=== PATIENT | female | born 1955 | race Caucasian/White ===

== ENCOUNTER 2018-04-01 20:03 | Inpatient (IN) | payer MEDICARE, OTHER, SELFPAY ==
[~2018-04-01 20:03] MED LIST: ISOVUE-370 76%-LOCM 1 ML ONE
[2018-04-01 21:09] LABS: ALT (SGPT) 28 U/L (8-55); AST (SGOT) 80 U/L (5-34); Albumin 2.8 g/dL (3.4-4.8); Alkaline Phosphatase 277 U/L (40-150); Anion Gap 18 mmol/L (10-20); BUN (Urea Nitrogen) 13 mg/dL (9.8-20.1); Bilirubin, Total 1.5 mg/dL (0.2-1.2); Calc. Creatinine Clearance 0 mL/min (70-130); Calcium 10.1 mg/dL (7.8-10.44); Carbon Dioxide 23 mmol/L (23-31); Chloride 94 mmol/L (98-107); Estimated GFR-MDRD 83; Globulin 3.5 g/dL (2.4-3.5); Glucose 121 mg/dL (80-115); Lipase 16 U/L (8-78); Potassium 4.4 mmol/L (3.5-5.1); Protein, Total 6.3 g/dL (6.0-8.3); Sodium 131 mmol/L (136-145)
[2018-04-01 21:12] LABS: Band 1 % (5-11); Hemoglobin 10.4 g/dL (12.0-16.0); Lymphocytes 9 % (21-51); MDiff Complete? YES; Mean Corpuscular HGB CONC 32.2 g/dL (32.0-36.0); Mean Corpuscular Hemoglobin 26.3 pg (27.0-31.0); Mean Corpuscular Volume 81.6 fL (78.0-98.0); Mean Platelet Volume 7.8 fL (7.4-10.4); Monocytes 3 % (0-10); Neutrophil 87 % (42-75); PLT Morphology Comment Appears Adequate; Platelet Count 259 thou/uL (130-400); RBC Distribution Width 15.2 % (11.5-14.5); Red Blood Cell (RBC) Count 3.97 mill/uL (4.20-5.40); White Blood Cell (WBC) Count 31.7 thou/uL (4.8-10.8)
[2018-04-01] MEDS ORDERED: MEROPENEM 1 GM/50 ML 1 GM in Premix Bag 1 BAG IVPB SCH (21:30)
--- NOTE | 2018-04-01 22:23 | CT ---
CT ABDOMEN AND PELVIS WITH IV CONTRAST 04/01/18 HISTORY: Nausea, vomiting and diarrhea. COMPARISON: 04/24/14. FINDINGS: There is volume loss at the right lung base with elevation of the right hemidiaphragm. There is also mild atelectasis at the left lung base. There are two pulmonary nodules seen at the left lung base. O ne measuring approximately 7 mm and the second measuring approximately 5 mm which were not present on the study of 2013. The liver is enlarged in craniocaudal dimensions measuring 24 cm. Multiple low density lesions are se en throughout each lobe of the liver with largest low density area measuring 13.4 cm x 7 cm involving the right hepatic lobe. The findings are worrisome for metastatic disease. The spleen, pancreas, bilateral adrenal glands, and kidneys demonstrate a normal CT appearance. The urinary bladder is decompressed. The uterus has a grossly normal CT appearance with punctate calc ifications seen in the uterus. Dense vascular calcifications are seen in the abdominal aorta and invo lving the iliac arteries. There is a small amount of free fluid adjacent to the lower portion of the right hepatic lobe and in the right paracolic gutter. There is also free fluid identified in the pelvis. The portal veins are patent. Degenerative changes are seen in the spine with vertebroplasty changes involving a severe wedge shape d compression fracture of the T12 vertebral body. There is also severe wedge shaped compression fract ure of the T11 vertebral body. These findings were seen on CT lumbar spine 06/20/14. No lytic or sclerotic osseous lesions are appreciated. There is a small fat containing umbilical hernia. IMPRESSION: 1. Hepatomegaly which is an interval change from the study in 2013, and in addition, there are m ultiple hypodense lesions seen throughout each lobe of the liver with largest hypodense lesion in the right hepatic lobe. Findings are concerning for metastatic disease. 2. Pulmonary nodules left lung base also concerning for metastatic disease. 3. Small amount of intraperitoneal free fluid. 4. Above findings discussed with Dr. Ramirez in the Emergency Department on 04/01/18 at 2152 hour s. POS: [facility]
--- NOTE | 2018-04-01 22:32 | PDOC.FPRHP ---
- History of Present Illness Chief Complaint: weakness, N/V/D History of Present Illness: 62 yo F with presents with nausea, vomiting, diarrhea and progressive weakness for the past 3 weeks. She also endorses abdominal pain that is diffuse, feels crampy and radiates up her right side. [facility] just recommended increased po intake of food and fluids. Her symptoms have have not improved. The weakness she describes as general, not limited to any specific part of her body. The diarrhea is watery, and she has about an episode a day. Denies blood in stool, recent travel or sick contacts. She has had decreased appetite due to nausea, and no unintentional weight loss. Denies fevers, chills. Has experienced recent lower leg weakness in which it is now difficult for her to walk. She normally can ambulate well using a cane. Her PCP discontinued her atorvastatin last week but her leg weakness has not improved. - Allergies/Adverse Reactions Allergies Allergy/AdvReac Type Severity Reaction Status Date / Time simvastatin [From Zocor] Allergy Hives Verified 04/02/18 01:23 Sulfa (Sulfonamide Allergy Verified 03/22/14 15:14 Antibiotics) - Home Medications Medication Instructions Recorded Confirmed Type Alendronate Sodium 70 mg PO Q7D 03/22/14 04/02/18 History Calcium Carbonate/Vitamin D3 1 tablet PO BID 03/22/14 04/02/18 History [Calcium 500 + Vit D 200 Caplet] Carboxymethyl/Glycerin/Poly80 1 - 2 drop EA EYE ASDIR PRN 03/22/14 04/02/18 History [Refresh Optive Advanced Drops] HYDROcodone Bit/APAP 10/325 [Makoti] 1 tab PO Q4HR PRN 03/22/14 04/02/18 History Levothyroxine Sodium 125 mcg PO DAILY 03/22/14 04/02/18 History Ranitidine HCl 150 mg PO BID 03/22/14 04/02/18 History Verapamil HCl [Verapamil ER] 240 mg PO BID 03/22/14 04/02/18 History buPROPion HCl [buPROPion HCl SR] 300 mg PO DAILY 03/22/14 04/02/18 History risperiDONE 0.5 mg PO HS 03/22/14 04/02/18 History PARoxetine HCl [Paxil] 40 mg PO DAILY 03/27/14 04/02/18 History Aspirin [Aspirin EC] 81 mg PO DAILY 04/02/18 04/02/18 History Ibuprofen [Motrin] 600 mg PO TID PRN 04/02/18 04/02/18 History Lidocaine 5% Patch [Lidoderm 5% 1 patch TD DAILY PRN 04/02/18 04/02/18 History Patch] Lisinopril/Hydrochlorothiazide 1 tablet PO DAILY 04/02/18 04/02/18 History [Lisinopril-Hctz 10-12.5 mg Tab] Methocarbamol 500 mg PO TID 04/02/18 04/02/18 History Methyl Salicylate/Menthol [Muscle 1 applic TOP TID PRN 04/02/18 04/02/18 History Rub Cream] traZODone HCl [Desyrel] 100 mg PO HS 04/02/18 04/02/18 History - History PMHx: HLD, HTN, Depression, GERD, spinal injury PSHx: appendetomy, right ovarian cystectomy FHx:[place] (mom), HTN Social: denies tob/etoh/drugs - Review of Systems General: denies: fever/chills, weight/appetite/sleep changes, night sweats Eyes: denies: eye pain, vision changes ENT: denies: nasal congestion, rhinorrhea Respiratory: denies: cough, shortness of breath, exercise intolerance Cardiovascular: denies: chest pain, palpitation, edema Gastrointestinal: reports: nausea, diarrhea, abdominal pain. denies: GI bleeding Genitourinary: denies: incontinence, dysuria Skin: denies: rashes, lesions, jaundice Musculoskeletal: denies: pain, tenderness, stiffness, arthritis/arthralgias Neurological: denies: numbness, weakness - Vital signs BP: 139/81 HR: 100 RR: 20 Tmax: 98.8 Pox: 94% on RA Wt: 88.2 - Physical Exam Constitutional: awake, alert and oriented, well developed HEENT: normocephalic and atraumatic, PERRLA, EOMI, no scleral icterus, grossly normal vision, grossly normal hearing Neck: supple, no thyromegaly, no bruits Chest: no-tender to palpation, no lesions Heart: normal S1/S2, no murmurs/rubs/gallops -Heart: tachycardic Lungs: CTAB, no respiratory distress, good air movement, no wheezing Abdomen: soft, bowel sounds present, no masses/distention -Abdomen: diffuse tender to palpation with more tenderness in RUQ. no rebound tenderness, no guarding Musculoskeletal: normal structure, ROM grossly normal Neurological: no focal deficit, CN II-XII intact, normal sensation Skin: no rash/lesions, good turgor, capillary refill <2 seconds Heme/Lymphatic: no unusual bruising or bleeding, no purpura, no petechia Psychiatric: normal mood and affect, other (tearful mood) FMR H&P: Results - Labs Result Diagrams: 04/02/18 02:11 04/02/18 02:11 Lab results: WBC 31.7 thou/uL (4.8-10.8) H 04/01/18 20:40 Hgb 10.4 g/dL (12.0-16.0) L 04/01/18 20:40 Hct 32.4 % (36.0-47.0) L 04/01/18 20:40 MCV 81.6 fL (78.0-98.0) 04/01/18 20:40 Plt Count 259 thou/uL (130-400) 04/01/18 20:40 Band Neuts % (Manual) 1 % (5-11) L 04/01/18 20:40 Sodium 131 mmol/L (136-145) L 04/01/18 20:40 Potassium 4.4 mmol/L (3.5-5.1) 04/01/18 20:40 Chloride 94 mmol/L (98-107) L 04/01/18 20:40 Carbon Dioxide 23 mmol/L (23-31) 04/01/18 20:40 BUN 13 mg/dL (9.8-20.1) 04/01/18 20:40 Creatinine 0.71 mg/dL (0.6-1.1) 04/01/18 20:40 Glucose 121 mg/dL (80-115) H 04/01/18 20:40 Calcium 10.1 mg/dL (7.8-10.44) 04/01/18 20:40 Total Bilirubin 1.5 mg/dL (0.2-1.2) H 04/01/18 20:40 AST 80 U/L (5-34) H 04/01/18 20:40 ALT 28 U/L (8-55) 04/01/18 20:40 Alkaline Phosphatase 277 U/L (40-150) H 04/01/18 20:40 Serum Total Protein 6.3 g/dL (6.0-8.3) 04/01/18 20:40 Albumin 2.8 g/dL (3.4-4.8) L 04/01/18 20:40 Lipase 16 U/L (8-78) 04/01/18 20:40 - Radiology Interpretation CT scan - abdomen Status: image reviewed by me, pending (hypodense lesions in R liver lobe 2 nodules in left pulmonary lobe) FMR H&P: A/P - Problem List (1) Sepsis Current Visit: Yes Status: Acute Code(s): A41.9 - SEPSIS, UNSPECIFIED ORGANISM (2) Metastatic disease Current Visit: Yes Status: Acute Code(s): C79.9 - SECONDARY MALIGNANT NEOPLASM OF UNSPECIFIED SITE (3) Elevated LFTs Current Visit: Yes Status: Acute Code(s): R94.5 - ABNORMAL RESULTS OF LIVER FUNCTION STUDIES (4) Normocytic anemia Current Visit: Yes Status: Chronic Code(s): D64.9 - ANEMIA, UNSPECIFIED (5) Hypertension Current Visit: Yes Status: Chronic Code(s): I10 - ESSENTIAL (PRIMARY) HYPERTENSION (6) Hypothyroidism Current Visit: Yes Status: Chronic Code(s): E03.9 - HYPOTHYROIDISM, UNSPECIFIED - Plan 62 yo F with sepsis 2/2 gi etiology. Sepsis syndrome -ddx: malignacy vs. bacteremia vs. viral GE vs.colitis -WBC 31, neutrophilic predominacne -CTA: possible mets lesions to liver and lungs -continue fluid resuscitation -Meropenem x1 in ED -Will start on vanc/zosyn -Pending blood cx, UA, UCx -will order stool culture, stool studies ( lactoferrin), FOBT, O&P Elevated ALT/ALP 2/2 malignancy vs. infection vs. NAFLD vs. ETOH abuse -will order lipid panel -check RPR, HIV/ HepB/HepC -will check AMA to assess for Primary Biliary Cirrhosi -Continue trending LFTs Normocytic anemia -hx of chronic anemia, not currently on home meds -will order iron studies Hypovolemia -tachycardia, clinically dehydrated -bolus x1 in ED, will bolus x1 and start on mIVF Hyponatremia -unknown etiology, could be from malignancy vs. 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 Pt notes she has been dealing with NVD, decreased oral intake, and weakness for the last 3 weeks. She has anywhere from 1-10 episodes of nonbloody loose watery diarrhea daily. She also endorses a "few" episodes of nonbloody vomiting during the same time period. Pt denies fevers/chills, night sweats, weight loss, POTTS, CP , palpitations, rash, sick contacts, or recent travel. She states she had a colonoscopy in the last 10 years that was normal. - Pertinent findings Vitals: BP 156/85, HR 120, R 18, O2 95% on RA, temp 98.5 oral, wt 90.72 kg Gen: obese in NAD CV:tachycardic, no MMR Resp: good effort, no distress, CTAB Abd: BS+, TTP with gentle stethoscope pressure all quadrants most profound RUQ, neg Rice's, no guarding/rebound Neuro: A&Ox3, no focal deficits - Plan Date/Time: 04/01/182231 I, Luiz Crawley MD PGY3, have evaluated this patient and agree with findings/ plan as outlined by internet sales consultant resident. Pertinent changes/additions are listed here. 1. Sepsis 2/2 likely GI pathology (ddx includes gastroenteritis, colitis, urinary source or bacteremia) -Pt presents with tachycardic, leukocytosis, and lactic acidosis suggestive of sepsis. -Workup and intervention incomplete by ERMD at time of admission. Will continue fluid resuscitation as pt has only received 1L NS bolus and adequate resuscitation (30 cc/kg) calls for 2.7L. Continue with LR 1L bolus at this time. Will also obtain procalcitonin. Trend lactic acid with IVF resuscitation. -With complaints of diarrhea, obtain stool studies including lactoferrin, culture, Shiga, campylobacter, c diff, O&P, and FOBT. -Pt received 1 gm of Meropenem in ED. No indication to continue meropenem at this time. Will transition pt to Vancomycin for G+ coverage and Zosyn for G-/GI coverage. -UA, blood and urine cultures drawn and pending. -CT abdomen does not comment on bowel but discussed with radiologist over the phone who stated small and large bowel appeared normal, no evidence of colitis. 2. Possible metastatic disease with evidence of liver and lung metastases -Unclear source at this time. Will obtain CEA, CA-125, and serum electrophoresis. -With elevation of AST, bilirubin, and alkaline phosphatase, will obtain dedicated RUQ US. Elevation likely secondary to metastatic disease. -Obtain HIV, RPR, hepatitis panel. -Consider consulting oncology in AM. 3. Elevated LFTs likely secondary to metastatic disease -Work up per above. Continue to trend. -AMA as possibly secondary to PBC. 4. Normocytic anemia -Iron studies, B12, folate, and FOBT. -Continue to monitor. 5. Mild hyponatermia -Continue to trend. Likely secondary to volume depletion. 6. HTN -Continue home medications. 7. Hypothyroidism -Check TSH and continue home medication. PPx: Lovenox for VTE prophylaxis, Protonix for GI prophylaxis. CODE STATUS: DNR, confirmed with patient at bedside. Admit to inpatient telemetry for anticipated length of stay greater than two midnights, pending clinical course. Attending Addendum - Attending Addendum Date/Time: 04/02/18 1100 I personally evaluated the patient and discussed the management with Dr. Nikolas Barney/ [place]. I agree with the History, Examination, Assessment and Plan documented above with any addition or exceptions noted below. Patient here with several weeks of increasing abdominal complaints despite outpatient evaluation. Complains of weakness, abdominal pain, diarrhea. Increased nausea and vomiting as well. On lab and imaging review, she meets Sepsis criteria with concern for GI source, and findings consistent with possible metastatic disease with unknown primary source. She will be admitted for further workup and evaluation. Broad spectrum abx and IVF. GI consult to further evaluate possible infection versus malignancy. Abdominal U/S to further characterize her liver lesions.
[2018-04-01] MEDS ORDERED: Lactated Ringer's 1,000 ML IV SCH ×2 (23:45)
[2018-04-02] MEDS ORDERED: Sodium Chloride 0.9% 1,000 ML IV SCH (01:00)
[2018-04-02] MEDS ORDERED: Enoxaparin Sodium 30 MG/0.3 ML SYRINGE SC SCH (01:00)
[2018-04-02] MEDS: Sodium Chloride 0.9% 1,000 ML IV SCH ×4 (01:48→21:25)
[2018-04-02 02:54] LABS: Lactic Acid 2.5 mmol/L (0.5-2.2)
[2018-04-02 02:56] LABS: Band 5 % (5-11); Hemoglobin 9.5 g/dL (12.0-16.0); Lymphocytes 3 % (21-51); MDiff Complete? YES; Mean Corpuscular HGB CONC 32.6 g/dL (32.0-36.0); Mean Corpuscular Hemoglobin 26.4 pg (27.0-31.0); Mean Corpuscular Volume 80.7 fL (78.0-98.0); Mean Platelet Volume 8.1 fL (7.4-10.4); Monocytes 6 % (0-10); Neutrophil 86 % (42-75); PLT Morphology Comment Appears Adequate; Platelet Count 234 thou/uL (130-400); RBC Distribution Width 15.1 % (11.5-14.5); Red Blood Cell (RBC) Count 3.59 mill/uL (4.20-5.40)
[2018-04-02] MEDS ORDERED: Ketorolac Tromethamine 30 MG/ML VIAL IVP SCH ×2 (03:00→06:00)
[2018-04-02 03:15] LABS: ALT (SGPT) 26 U/L (8-55); AST (SGOT) 79 U/L (5-34); Albumin 2.5 g/dL (3.4-4.8); Alkaline Phosphatase 242 U/L (40-150); Anion Gap 15 mmol/L (10-20); BUN (Urea Nitrogen) 11 mg/dL (9.8-20.1); Bilirubin, Total 1.4 mg/dL (0.2-1.2); Calc. Creatinine Clearance 120 mL/min (70-130); Calcium 9.4 mg/dL (7.8-10.44); Carbon Dioxide 26 mmol/L (23-31); Chloride 98 mmol/L (98-107); Estimated GFR-MDRD 90; Globulin 3.3 g/dL (2.4-3.5); Glucose 90 mg/dL (80-115); Iron 22 ug/dL (50-170); Iron Binding Capacity, Total 114 mcg/dL (265-497); Protein, Total 5.8 g/dL (6.0-8.3); Sodium 135 mmol/L (136-145)
[2018-04-02 03:17] LABS: Cardiac Risk 6.6 (Less than 4.5)
[2018-04-02 03:31] LABS: Thyroid Stimulating Hormone 5.2695 uIU/mL (0.35-4.94)
[2018-04-02 03:32] LABS: HBSAg Index 0.24 S/CO (0-0.99); Hep B Surf AB Non-Reactive (NonReactive); Hep B Surf Ag Non-Reactive S/CO (NonReactive); Hep C IgG Ab Non-Reactive (NonReactive)
[2018-04-02 03:33] LABS: HIV (1/2) Antibody/Antigen Non-Reactive (NonReactive); HIV 1/2 INDEX 0.06 S/CO (<1.00)
--- NOTE | 2018-04-02 05:51 | PDOC.FM ---
- Subjective Subjective: 62 yo F with sepsis 2/2 GI source and probable metastatic disease. She is feeling tired this morning. States she has lost 25 lbs (intentional at first) since September, food doesn't taste the same or smell the same. No colonoscopy in the past. No fam hx of GI/ovarian cancer. She has done FOBT in the past ( approx 1 yr ago per pt) that were normal. Pt states her nausea is improved and she is hungry this morning. Belly pain improved. - Objective Vital Signs & Weight: Vital Signs (12 hours) Temp Pulse Resp BP Pulse Ox 04/02/18 04:00 98.1 F 92 20 161/82 H 92 L 04/02/18 00:15 98.8 F 100 20 139/81 94 L Weight Weight 88.224 kg Result Diagrams: 04/02/18 02:11 04/02/18 02:11 <Kae Prater - Last Filed: 04/02/18 07:52> - Objective Vital Signs & Weight: Vital Signs (12 hours) Temp Pulse Resp BP BP Pulse Ox 04/02/18 08:46 86 128/73 04/02/18 08:00 98.3 F 86 18 128/73 95 04/02/18 04:00 98.1 F 92 20 161/82 H 92 L 04/02/18 00:15 98.8 F 100 20 139/81 94 L Weight Weight 88.224 kg I&O: 04/01/18 04/02/18 04/03/18 06:59 06:59 06:59 Intake Total 1078 Output Total 400 Balance 678 Result Diagrams: 04/02/18 02:11 04/02/18 02:11 <Vincent [address] - Last Filed: 04/02/18 10:44> Phys Exam - Physical Examination Constitutional: NAD HEENT: PERRLA, moist MMs Neck: no nodes, no JVD Respiratory: no wheezing, no rales Cardiovascular: RRR, no significant murmur Gastrointestinal: soft +TTP on deep palpation in RLQ and RUQ Musculoskeletal: no edema, pulses present Neurological: moves all 4 limbs Lymphatic: no nodes Skin: no rash, normal turgor <Kae Prater - Last Filed: 04/02/18 07:52> Dx/Plan (1) Hyponatremia Code(s): E87.1 - HYPO-OSMOLALITY AND HYPONATREMIA Status: Resolved (2) Hypovolemia associated with vomiting Code(s): E86.1 - HYPOVOLEMIA Status: Acute (3) Depression Code(s): F32.9 - MAJOR DEPRESSIVE DISORDER, SINGLE EPISODE, UNSPECIFIED Status : Chronic (4) Osteoporosis Code(s): M81.0 - AGE-RELATED OSTEOPOROSIS W/O CURRENT PATHOLOGICAL FRACTURE Status: Chronic (5) Elevated LFTs Code(s): R94.5 - ABNORMAL RESULTS OF LIVER FUNCTION STUDIES Status: Acute (6) Hypertension Code(s): I10 - ESSENTIAL (PRIMARY) HYPERTENSION Status: Chronic (7) Hypothyroidism Code(s): E03.9 - HYPOTHYROIDISM, UNSPECIFIED Status: Chronic (8) Metastatic disease Code(s): C79.9 - SECONDARY MALIGNANT NEOPLASM OF UNSPECIFIED SITE Status: Acute (9) Normocytic anemia Code(s): D64.9 - ANEMIA, UNSPECIFIED Status: Chronic (10) Sepsis Code(s): A41.9 - SEPSIS, UNSPECIFIED ORGANISM Status: Acute - Plan Plan: 1. Sepsis 2/2 likely GI pathology (ddx includes gastroenteritis, colitis, urinary source or bacteremia) -Presented with tachycardia, leukocytosis, and lactic acidosis suggestive of sepsis. -Continue fluid rescuscitation (bolus LR x1, NSx1), MIVF @ 125 ml/hr -Procalcitonin 5.73 -LA down trending, 5.1-> 2.5 -For diarrhea, obstained stool studies including lactoferrin, culture, Shiga, campylobacter, c diff, O&P, and FOBT. -Pt received 1 gm of Meropenem in ED. No indication to continue meropenem at this time. Transitioned to Vancomycin 04/01/18 for G+ coverage and Zosyn for G-/ GI coverage. -UA pending -blood and urine cultures drawn and pending -CT abdomen does not comment on bowel but resident discussed with radiologist over the phone who stated small and large bowel appeared normal, no evidence of colitis. 2. Possible metastatic disease with evidence of liver and lung metastases -Unclear source at this time. Ordered CEA, CA-125, and serum electrophoresis. -CEA very high at 1191 -With elevation of AST, bilirubin, and alkaline phosphatase, will obtain dedicated RUQ US. Elevation likely secondary to metastatic disease. -HIV, RPR, hepatitis panel - all negative. Hep B immune -Consult oncology, recommendations appreciated 3. Elevated LFTs likely secondary to metastatic disease -Work up per above. Continue to trend. -AMA is possibly secondary to PBC. -Lipid panel: wnl 4. Normocytic anemia -Iron studies wnl - B12, folate, and FOBT ordered -Folate low, will replace with banana bag -Continue to monitor. 5. Mild hyponatremia, resolved -Likely secondary to volume depletion, resolved with fluids 6. HTN -Continue home medications. 7. Hypothyroidism - TSH slightly high at 5.3 -Free T4 wnl at .95 - Free T3 pending 8. Hypovolemia -Clinically dehydrated, tachycardic on presentation - bolus x2, MIVF NS @125 9. Depression -Continue home medications 10. Osteoporosis -Continue home medications PPx: Lovenox for VTE prophylaxis, Protonix for GI prophylaxis. CODE STATUS: Full code Admitted to Inpatient telemetry Rod Prater PGY1 <Kae Prater - Last Filed: 04/02/18 07:52> Attending Addendum - Attending Addendum Date/Time: 04/02/18 1042 I personally evaluated the patient and discussed the management with Dr. Prater. I agree with the History, Examination, Assessment and Plan documented above with any addition or exceptions noted below. Patient feeling improved this morning. She was admitted for concern for sepsis with possible GI infection of unknown etiology as well as lab and imaging findings concerning for malignancy. We will continue on broad spectrum abx and fluids. Cultures have been obtained. RUQ U/S consistent with biliary sludge and stones but unlikely to be the major cause of her presentation. [facility] and so we will defer further studies or consults until that decision is made. Needs GI consult and possible future Oncology consult. <Vincent Way - Last Filed: 04/02/18 10:44>
[2018-04-02 06:03] LABS: Free T4 (Free Thyroxine) 0.95 ng/dL (0.70-1.48); Syphilis Antibody Nonreactive (Nonreactive); Syphilis Antibody Index 0.04 S/CO (<1.00 Non-Reactive)
[2018-04-02 06:20] LABS: Vitamin B12 Greater than 2000 pg/mL (211-911)
[2018-04-02] MEDS: Levothyroxine Sodium 125 MCG TAB PO SCH (06:22)
[2018-04-02] MEDS: Ibuprofen 600 MG TAB PO PRN ×2 (06:22→17:06)
[2018-04-02] MEDS: Piperacillin/Tazobactam 3.375 GM in Sodium Chloride 0.9% 100 ML IVPB SCH ×3 (06:23→17:05)
[2018-04-02 06:48] LABS: Ferritin 2594.93 ng/mL (10-291)
[2018-04-02 06:51] LABS: Bilirubin Negative (Negative); Blood, Urine Negative (Negative); Clarity CLEAR (Clear); Glucose, Urine (Dipstick) Negative (Negative); Leukocyte Small (Negative); Nitrite Negative (Negative); Protein, Urine (Dipstick) Negative (Neg-Trace); Specific Gravity, Urine 1.021 (1.002-1.036); Urobilinogen 0.2 mg/dL (0.2-1.0)
[2018-04-02 06:53] LABS: Pathc Cast-AUWi Flag 0.43 (0-2.49)
[2018-04-02 07:19] LABS: Bacteria/HPF 1+ HPF (None Seen); Hyaline Casts/LPF NONE SEEN LPF (0-3 Hyaline); RBC/HPF 0-3 HPF (0-3); Squamous Epithelial 0-3 HPF (0-3); WBC/HPF 0-3 HPF (0-3)
[2018-04-02] MEDS: Bupropion 150 MG XL TAB PO SCH (08:44)
[2018-04-02] MEDS: PARoxetine 20 MG TAB PO SCH (08:44)
[2018-04-02] MEDS: Calcium Carbonate + Vit D 1 TAB PO SCH ×2 (08:46→21:24)
[2018-04-02] MEDS: Lisinopril/Hydrochlorothiazide 10 mg/12.5 mg Tablet PO SCH (08:46)
[2018-04-02] MEDS: Vancomycin HCl 1.5 GM in Sodium Chloride 0.9% 250 ML 300 ML IVPB SCH ×2 (08:55→21:34)
[2018-04-02] MEDS: Aspirin 81 mg Enteric Coated Tablet PO SCH (08:56)
[2018-04-02] MEDS: Ketorolac Tromethamine 30 MG/ML VIAL IVP SCH ×3 (08:57→21:23)
[2018-04-02] MEDS: Pantoprazole 40 MG VIAL IVP SCH (08:58)
[2018-04-02] MEDS ORDERED: Folic Acid 1 MG TAB PO SCH ×2 (09:00→11:00)
[2018-04-02] MEDS ORDERED: Non-Formulary Item 1 EACH (Ranitidine Hcl [Ranitidine Hcl] 150 MG) PO SCH (09:00)
--- NOTE | 2018-04-02 09:02 | ULT ---
GALLBLADDER ULTRASOUND: INDICATION: Elevated liver function tests and right upper quadrant pain. Evidence of liver metastasis on recent CT. FINDINGS: Gallbladder is full of echogenic stones and echogenic sludge. The gallbladder wall is thickened. Th e common duct is within normal range at 5 mm. The liver is very heterogeneous consistent with CT findings. Pancreas is obscured. The right kidney is unremarkable. The technologist describes a positive Rice's sign. IMPRESSION: 1. Gallbladder is filled with echogenic stones, sludge, and thickened wall with positive Rice's si gn. 2. The liver is heterogeneous consistent with metastatic disease as noted on CT. POS: [facility]
[2018-04-03] MEDS: Piperacillin/Tazobactam 3.375 GM in Sodium Chloride 0.9% 100 ML IVPB SCH ×5 (00:07→23:53)
[2018-04-03] MEDS: Sodium Chloride 0.9% 1,000 ML IV SCH ×3 (01:06→19:40)
[2018-04-03] MEDS: Ibuprofen 600 MG TAB PO PRN ×3 (01:06→22:00)
[2018-04-03] MEDS: Ketorolac Tromethamine 30 MG/ML VIAL IVP SCH ×2 (03:17→08:55)
--- NOTE | 2018-04-03 05:13 | PDOC.FM ---
- Subjective Subjective: Ms. Guzman reports she did not sleep well last night due to cold room and restless legs. Otherwise she has no complaints. No nausea vomiting. Reports she is tolerating PO intake well. Is concerned about finances and hopes to be transferred to the [facility] today. - Objective MAR Reviewed: Yes Vital Signs & Weight: Vital Signs (12 hours) Temp Pulse Resp BP Pulse Ox 04/03/18 03:14 98.2 F 84 20 115/61 93 L 04/02/18 23:05 82 20 111/57 L 93 L 04/02/18 21:23 97.8 F 82 20 95 04/02/18 20:16 97.8 F 82 20 123/59 L 95 Weight Weight 91.852 kg I&O: 04/01/18 04/02/18 04/03/18 06:59 06:59 06:59 Intake Total 1078 2280 Output Total 400 1100 Balance 678 1180 Result Diagrams: 04/02/18 02:11 04/03/18 05:28 Phys Exam - Physical Examination Constitutional: NAD Respiratory: no wheezing, no rales, no rhonchi, clear to auscultation bilateral Cardiovascular: RRR, no significant murmur Gastrointestinal: soft, non-tender, no distention, positive bowel sounds Musculoskeletal: no edema, pulses present Neurological: non-focal Psychiatric: normal affect Dx/Plan (1) Elevated LFTs Code(s): R94.5 - ABNORMAL RESULTS OF LIVER FUNCTION STUDIES Status: Acute (2) Hypovolemia associated with vomiting Code(s): E86.1 - HYPOVOLEMIA Status: Acute (3) Metastatic disease Code(s): C79.9 - SECONDARY MALIGNANT NEOPLASM OF UNSPECIFIED SITE Status: Acute (4) Sepsis Code(s): A41.9 - SEPSIS, UNSPECIFIED ORGANISM Status: Acute (5) Depression Code(s): F32.9 - MAJOR DEPRESSIVE DISORDER, SINGLE EPISODE, UNSPECIFIED Status : Chronic (6) Hypertension Code(s): I10 - ESSENTIAL (PRIMARY) HYPERTENSION Status: Chronic (7) Hypothyroidism Code(s): E03.9 - HYPOTHYROIDISM, UNSPECIFIED Status: Chronic (8) Normocytic anemia Code(s): D64.9 - ANEMIA, UNSPECIFIED Status: Chronic (9) Osteoporosis Code(s): M81.0 - AGE-RELATED OSTEOPOROSIS W/O CURRENT PATHOLOGICAL FRACTURE Status: Chronic (10) Hyponatremia Code(s): E87.1 - HYPO-OSMOLALITY AND HYPONATREMIA Status: Resolved - Plan Plan: 1. Sepsis 2/2 likely GI pathology (ddx includes gastroenteritis, colitis, urinary source or bacteremia) -Presented with tachycardia, leukocytosis, and lactic acidosis suggestive of sepsis. -Continue IVF @ 125 ml/hr -Procalcitonin 5.73 -LA down trending, 5.1-> 2.5 -FOBT negative. Stool studies not completed. -Vancomycin 04/01/18 for G+ coverage and Zosyn for G-/GI coverage. -UA neg -blood and urine cultures pending -CT abdomen does not comment on bowel but resident discussed with radiologist over the phone who stated small and large bowel appeared normal, no evidence of colitis. -Needs GI consult pending dispo - refused labs this morning due to concern about cost 2. Possible metastatic disease with evidence of liver and lung metastases -Unclear source at this time. CEA 1195, CA-125 1248 -HIV, RPR, hepatitis panel - all negative. Hep B immune -Consider oncology consult 3. Elevated LFTs likely secondary to metastatic disease -Work up per above. Continue to trend. -Lipid panel: wnl - RUQ US 4. Normocytic anemia -Iron studies wnl -Folate low, given banana bag -Continue to monitor. 5. Mild hyponatremia, resolved -Likely secondary to volume depletion, resolved with fluids 6. HTN -Continue home medications. 7. Hypothyroidism - TSH slightly high at 5.3 -Free T4 wnl at .95, Free T3 low <1 8. Hypovolemia, resolved -Clinically dehydrated, tachycardic on presentation -NS @125 9. Depression -Continue home medications 10. Osteoporosis -Continue home medications PPx: Lovenox for VTE prophylaxis, Protonix for GI prophylaxis. CODE STATUS: Full code Dispo: possible transfer to [facility] today
[2018-04-03] MEDS: Levothyroxine Sodium 125 MCG TAB PO SCH (05:58)
[2018-04-03 06:15] LABS: ALT (SGPT) 11 U/L (8-55); AST (SGOT) 11 U/L (5-34); Albumin 3.1 g/dL (3.4-4.8); Alkaline Phosphatase 80 U/L (40-150); Anion Gap 13 mmol/L (10-20); BUN (Urea Nitrogen) 57 mg/dL (9.8-20.1); Bilirubin, Total 0.5 mg/dL (0.2-1.2); Calc. Creatinine Clearance 35 mL/min (70-130); Calcium 8.9 mg/dL (7.8-10.44); Carbon Dioxide 20 mmol/L (23-31); Chloride 106 mmol/L (98-107); Estimated GFR-MDRD 21; Globulin 3.2 g/dL (2.4-3.5); Glucose 393 mg/dL (80-115); Potassium 4.3 mmol/L (3.5-5.1); Protein, Total 6.3 g/dL (6.0-8.3); Sodium 135 mmol/L (136-145)
[2018-04-03] MEDS: Pantoprazole 40 MG VIAL IVP SCH (08:53)
[2018-04-03] MEDS: Enoxaparin Sodium 40 MG/0.4 ML SYRINGE SC SCH (08:53)
[2018-04-03] MEDS: Calcium Carbonate + Vit D 1 TAB PO SCH ×2 (08:54→20:45)
[2018-04-03] MEDS: Lisinopril/Hydrochlorothiazide 10 mg/12.5 mg Tablet PO SCH (08:54)
[2018-04-03] MEDS: Aspirin 81 mg Enteric Coated Tablet PO SCH (08:55)
[2018-04-03] MEDS: Folic Acid 1 MG TAB PO SCH (08:55)
[2018-04-03] MEDS: PARoxetine 20 MG TAB PO SCH (09:00)
[2018-04-03] MEDS: Bupropion 150 MG XL TAB PO SCH (09:01)
[2018-04-03] MEDS: Vancomycin HCl 1.5 GM in Sodium Chloride 0.9% 250 ML 300 ML IVPB SCH ×2 (09:05→21:02)
[2018-04-03 12:10] LABS: EliA Vaculitis New Method **** NEW METHOD ****; Mitochondrial Ab 0.5 U/mL (<4 Negative)
--- NOTE | 2018-04-03 15:32 | RAD ---
CHEST TWO VIEWS: HISTORY: Sepsis without source. COMPARISON: CT abdomen and pelvis from 04/01/2018. FINDINGS: There is linear atelectasis in both lung bases. There is exaggerated kyphosis of the two compression fractures of the lower thoracic spine. No pneumothorax or effusion. IMPRESSION: Lung hypoinflation with linear atelectasis. POS: [facility]
[2018-04-03 16:33] LABS: ALT (SGPT) 32 U/L (8-55); AST (SGOT) 93 U/L (5-34); Albumin 2.3 g/dL (3.4-4.8); Alkaline Phosphatase 261 U/L (40-150); Anion Gap 15 mmol/L (10-20); BUN (Urea Nitrogen) 10 mg/dL (9.8-20.1); Bilirubin, Total 1.6 mg/dL (0.2-1.2); Calc. Creatinine Clearance 101 mL/min (70-130); Carbon Dioxide 22 mmol/L (23-31); Chloride 106 mmol/L (98-107); Estimated GFR-MDRD 70; Globulin 2.9 g/dL (2.4-3.5); Glucose 107 mg/dL (80-115); Potassium 3.8 mmol/L (3.5-5.1); Protein, Total 5.2 g/dL (6.0-8.3); Sodium 139 mmol/L (136-145)
[2018-04-03 20:54] LABS: Vancomycin, Trough 33.7 ug/mL
[2018-04-03] MEDS ORDERED: Ibuprofen 600 MG TAB PO PRN (21:50)
[2018-04-03] MEDS ORDERED: traZODone HCl 50 MG TAB PO SCH (22:00)
[2018-04-04] MEDS: Levothyroxine Sodium 125 MCG TAB PO SCH (05:29)
[2018-04-04] MEDS: Piperacillin/Tazobactam 3.375 GM in Sodium Chloride 0.9% 100 ML IVPB SCH ×2 (05:29→12:20)
--- NOTE | 2018-04-04 06:22 | PDOC.FM ---
- Subjective Subjective: Ms. Guzman denies any new complaints. Denies nausea, vomiting, diarrhea, fever. Feels constipated. Has had soaking night sweats a couple times/week for past couple months. Denies any appetite or weight changes. Never had a colonoscopy. Never had dark stools in the past. Typically constipated. Previous smoker, quit 6 years ago, 8 pack years. Reports general weakness for past 3 weeks. - Objective MAR Reviewed: Yes Vital Signs & Weight: Vital Signs (12 hours) Temp Pulse Resp BP Pulse Ox 04/04/18 03:44 98.2 F 79 18 112/56 L 95 04/03/18 19:40 98.0 F 86 20 113/59 L 92 L Weight Admit Weight 88.224 kg Weight 91.654 kg I&O: 04/02/18 04/03/18 04/04/18 06:59 06:59 06:59 Intake Total 1078 4293 1120 Output Total 400 1600 400 Balance 678 7463 720 Result Diagrams: 04/04/18 05:35 04/04/18 05:35 Phys Exam - Physical Examination Constitutional: NAD HEENT: moist MMs Respiratory: no wheezing, clear to auscultation bilateral Cardiovascular: RRR, no significant murmur Gastrointestinal: soft, no distention, positive bowel sounds Diffuse TTP, LUQ more than other zones Musculoskeletal: no edema Neurological: non-focal, moves all 4 limbs Psychiatric: normal affect, A&O x 3 Skin: no rash, normal turgor Dx/Plan (1) Elevated LFTs Code(s): R94.5 - ABNORMAL RESULTS OF LIVER FUNCTION STUDIES Status: Acute (2) Hypovolemia associated with vomiting Code(s): E86.1 - HYPOVOLEMIA Status: Acute (3) Metastatic disease Code(s): C79.9 - SECONDARY MALIGNANT NEOPLASM OF UNSPECIFIED SITE Status: Acute (4) Sepsis Code(s): A41.9 - SEPSIS, UNSPECIFIED ORGANISM Status: Acute (5) Depression Code(s): F32.9 - MAJOR DEPRESSIVE DISORDER, SINGLE EPISODE, UNSPECIFIED Status : Chronic (6) Hypertension Code(s): I10 - ESSENTIAL (PRIMARY) HYPERTENSION Status: Chronic (7) Hypothyroidism Code(s): E03.9 - HYPOTHYROIDISM, UNSPECIFIED Status: Chronic (8) Normocytic anemia Code(s): D64.9 - ANEMIA, UNSPECIFIED Status: Chronic (9) Osteoporosis Code(s): M81.0 - AGE-RELATED OSTEOPOROSIS W/O CURRENT PATHOLOGICAL FRACTURE Status: Chronic (10) Hyponatremia Code(s): E87.1 - HYPO-OSMOLALITY AND HYPONATREMIA Status: Resolved - Plan Plan: Sepsis 2/2 likely GI pathology (ddx includes gastroenteritis, colitis, urinary source or bacteremia) -Presented with N/V/D, tachycardia, leukocytosis, and lactic acidosis suggestive of sepsis. -Vitals now stable, IVF discontinued -Procalcitonin 5.73 -LA down trending, 5.1-> 2.5 -FOBT negative. Stool studies not completed d/t formed stools. -Vancomycin 04/01/18 for G+ coverage and Zosyn for G-/GI coverage. Pharmacy to dose vanc, last trough elevated. -UA neg -blood and urine cultures pending -CT abdomen does not comment on bowel but resident discussed with radiologist over the phone who stated small and large bowel appeared normal, no evidence of colitis. -Consulted GI, Case Possible metastatic disease with evidence of liver and lung metastases, unknown source - Founds on CT ab/pelvis. Will continue workup to identify primary source - transvaginal ultrasound pending - will consider CT chest - Unclear source at this time. CEA 1195, CA-125 1248 -HIV, RPR, hepatitis panel - all negative. Hep B immune -Consider oncology consult Cholecystisis possible - RUQ US showed gallbladder filled with echogenic stones, sludge, thickened meléndez, positive Rice's sign. Metastatic lesions on liver. - RUQ still mildly TTP - N/V/D have resolved. Consider general surgery consult. Elevated LFTs likely secondary to metastatic disease -Work up per above. Continue to trend. - Today total bili 1.4, AST 89, ALT 31 Normocytic anemia, stable -Ferritin 2594, iron studies suggest anemia of chronic disease -Folate low, given banana bag -Continue to monitor. Mild hyponatremia, resolved HTN -Continue home medications Chronic Low Back Pain - after breaking back 6 years ago Constipation - added bowel regimen Hypothyroidism - TSH slightly high at 5.3 -Free T4 wnl at .95, Free T3 low <1 Depression -Continue home medications Osteoporosis -Continue home medications Previous Tobacco Use - quit 6 years ago, 8 pack year hx Weakness - consult PT PPx: Lovenox for VTE prophylaxis, Protonix for GI prophylaxis. CODE STATUS: Full code Dispo: pending workup
[2018-04-04 06:35] LABS: ALT (SGPT) 31 U/L (8-55); AST (SGOT) 89 U/L (5-34); Albumin 2.3 g/dL (3.4-4.8); Alkaline Phosphatase 233 U/L (40-150); Anion Gap 16 mmol/L (10-20); BUN (Urea Nitrogen) 9 mg/dL (9.8-20.1); Bilirubin, Total 1.4 mg/dL (0.2-1.2); Calc. Creatinine Clearance 78 mL/min (70-130); Carbon Dioxide 19 mmol/L (23-31); Chloride 107 mmol/L (98-107); Estimated GFR-MDRD 53; Globulin 2.9 g/dL (2.4-3.5); Glucose 86 mg/dL (80-115); Protein, Total 5.2 g/dL (6.0-8.3); Sodium 138 mmol/L (136-145)
[2018-04-04 07:21] LABS: Band 15 % (5-11); Hemoglobin 8.7 g/dL (12.0-16.0); Lymphocytes 6 % (21-51); MDiff Complete? YES; Mean Corpuscular HGB CONC 32.4 g/dL (32.0-36.0); Mean Corpuscular Hemoglobin 26.2 pg (27.0-31.0); Mean Corpuscular Volume 81.1 fL (78.0-98.0); Mean Platelet Volume 8.4 fL (7.4-10.4); Monocytes 6 % (0-10); Neutrophil 73 % (42-75); PLT Morphology Comment Appears Adequate; Platelet Count 239 thou/uL (130-400); Polychromasia SLIGHT = 2-3 cells (100X) (0-2/hpf); RBC Distribution Width 15.5 % (11.5-14.5); Red Blood Cell (RBC) Count 3.31 mill/uL (4.20-5.40)
[2018-04-04] MEDS ORDERED: Iopamidol 370 76% 100 ML VIAL ONE (08:27)
--- NOTE | 2018-04-04 08:35 | ADD-PRG ---
ADDENDUM DATE OF SERVICE: 04/03/2018 This is an addendum to the note of Dr. Lavern Madden. The patient is a 62-year-old female patient, who was initially admitted with nausea, vomiting, diarrh ea, and progressive weakness for the last 3 weeks. Subsequent to this an abdominal pelvic CT was obt ained on 04/01/2018 showing the presence of possible metastatic disease. Specifically, the liver was enlarged measuring 24 cm. There were multiple low-density lesions seen throughout each lobe with la rgest area measuring 13 x 7 cm. It was worrisome for metastatic disease. The spleen, pancreas, adre nal glands and kidneys were normal. Urinary bladder appeared normal. Calcifications seen in the richie sharron. The impression was as stated above, concerning for metastatic disease. Given the fact that she was a dmitted with a white count of 31,700 and possible sepsis. She was initially placed on broad-spectrum antibiotics. She has expressed a desire to be transferred to the [facility] in [place], where her h ospital workup will be covered financially. We are in the process of attempting arrangements at this time.
[2018-04-04] MEDS ORDERED: Vancomycin HCl 1.25 GM in Sodium Chloride 0.9% 250 ML 250 ML IVPB SCH ×2 (09:00→21:00)
[2018-04-04] MEDS: Pantoprazole 40 MG VIAL IVP SCH (09:33)
[2018-04-04] MEDS: PARoxetine 20 MG TAB PO SCH (09:36)
[2018-04-04] MEDS: Ibuprofen 600 MG TAB PO PRN (09:36)
[2018-04-04] MEDS: Senokot 8.6 MG TAB PO SCH ×3 (09:36→20:44)
[2018-04-04] MEDS: Folic Acid 1 MG TAB PO SCH (09:37)
[2018-04-04] MEDS: Calcium Carbonate + Vit D 1 TAB PO SCH ×2 (09:37→20:17)
[2018-04-04] MEDS: Enoxaparin Sodium 40 MG/0.4 ML SYRINGE SC SCH (09:38)
[2018-04-04] MEDS: Aspirin 81 mg Enteric Coated Tablet PO SCH (09:38)
[2018-04-04] MEDS: Lisinopril/Hydrochlorothiazide 10 mg/12.5 mg Tablet PO SCH (09:38)
[2018-04-04] MEDS: Polyethylene Glycol 3350 17 GM Packet PO SCH (09:45)
[2018-04-04] MEDS: Bupropion 150 MG XL TAB PO SCH (10:20)
[2018-04-04 12:19] LABS: Vancomycin, Random 21.5 ug/mL (See Comment)
--- NOTE | 2018-04-04 12:39 | ULT ---
TRANSABDOMINAL PELVIS ULTRASOUND: INDICATIONS: History of metastasis. TECHNIQUE: Irby-scale ultrasound images were obtained of the abdomen via a transabdominal approach. The patient refused transvaginal examination. FINDINGS: The visualized bladder is normal appearing. The uterus and adnexa are not well seen. There is a sma ll amount of free fluid seen within the lower pelvis, adjacent to the bladder. IMPRESSION: 1. Nonvisualization of the uterus and adnexa. The patient refused transvaginal examination, limitin g the ultrasound evaluation. 2. Mild free fluid in the pelvis. POS: [facility]
--- NOTE | 2018-04-04 12:50 | ADD-PRG ---
DATE OF SERVICE: 04/04/2018 This is an addendum to the note of Dr. Laevrn Madden. Ms. Guzman has just returned from her transvaginal ultrasound. We will go ahead and consult GI to s if they would like to do a liver biopsy and possibly a colonoscopy. Her CT of the abdomen showed possible metastatic disease in the lower lung anderson and we will confirm this with a CT of the lungs. Clinically, Ms. Guzman remains stable. We believe her symptoms at presentation were more likely d ue to metastatic disease and not infection. She has been afebrile and her urine culture and blood cu ltures are all no growth. We will therefore discontinue her antibiotics.
[2018-04-04] MEDS ORDERED: GoLYTELY 4,000 ml Bottle PO SCH (13:30)
--- NOTE | 2018-04-04 14:00 | CON ---
DATE OF CONSULTATION: 04/04/2018 REQUESTING PHYSICIAN: Dr. Madden. REASON FOR CONSULTATION: Metastatic disease. HISTORY OF PRESENT ILLNESS: Ms. Maureen Guzman is a very pleasant 62-year-old woman who was adm itted to the hospital a couple of days ago after presenting with worsening symptoms of generalized ab dominal pain, nausea, vomiting, and loose stools over the past 3 weeks. This has come on with progre ssive weakness. She denies any hematochezia or hematemesis with this, but has been developing overal l fatigue and malaise. Upon presentation, she was found to have a leukocytosis with WBC 31.7 as well as elevated lactic acid. She was initially treated with broad spectrum antibiotics. CT of the abdo men and pelvis on admission demonstrated a couple of new pulmonary nodules in the left lung base as w ell as multiple large liver lesions in both lobes measuring up to 13.4 cm concerning for metastatic d isease. The patient denies any family history of gastrointestinal malignancy. She does not think sh e has ever had a colonoscopy before. She does not smoke or drink alcohol. Further lab workup has de monstrated elevated CEA of 1191 and CA-125 of 1248.9. PAST MEDICAL AND SURGICAL HISTORY: Appendectomy, osteoporosis, hyperlipidemia, GERD, hypertension, d epression, spinal injury, right ovarian cystectomy. REVIEW OF SYSTEMS: Full review of systems including constitutional, head, eyes, ears, nose, throat, GI, , cardiovascular, respiratory, musculoskeletal, and neurologic systems is negative except as no dain in the HPI. FAMILY HISTORY: Her mother had myocardial infarction. No known family history of GI malignancy. SOCIAL HISTORY: No smoking, alcohol, or drug use. ALLERGIES: SIMVASTATIN and SULFA. HOME MEDICATIONS: Alendronate, calcium carbonate/vitamin D, [place] p.r.n., levothyroxine, ranitidine, verapamil, bupropion, risperidone, paroxetine, aspirin 81 mg daily, ibuprofen t.i.d. p.r.n., lidocai ne patch, lisinopril/hydrochlorothiazide, methocarbamol, trazodone. PHYSICAL EXAMINATION: VITAL SIGNS: Temperature 97.6, pulse 79, blood pressure 102/66, 93% oxygen saturation on room air. GENERAL: Chronically ill, but nontoxic appearing 62-year-old woman lying in bed comfortably, in no d istress. SKIN: She is a bit pale, no jaundice, no rashes were palpable. EYES: No scleral icterus. Extraocular movements intact. ENT: Mucous membranes moist, no oral lesions. LYMPH: No submandibular, supraclavicular lymphadenopathy. THYROID: Nontender to palpation. HEART: Regular rate and rhythm. LUNGS: Clear to auscultation bilaterally. ABDOMEN: Bowel sounds present. The abdomen is soft and nondistended, but diffusely tender to palpat ion particularly in the epigastrium, not so much in the right upper quadrant. EXTREMITIES: No peripheral edema. VESSELS: Radial pulses 2+ bilaterally. NEUROLOGICAL: Cranial nerves II through XII intact bilaterally. No focal deficits. LABORATORY STUDIES: WBC down to 24.0, hemoglobin 8.7, platelets 239. MCV is 81.1. Sodium 135, pota ssium 4.0, BUN 11, creatinine 0.66. Iron studies are mixed with ferritin 2594. Iron 22, TIBC 114, t otal bilirubin 1.4, alkaline phosphatase 242, AST is 79, ALT 26, albumin 2.5. Lipase only 16. Vitam in B12 greater than 2000, folic acid is low at 4.9. TSH 5.269. Free T3 less than 1. Free T4 0.95. GGT 374. CA-125 is 1248.9. CEA is very elevated to 1191.26. IMAGING STUDIES: CT of the abdomen and pelvis as detailed in the HPI. Pelvic ultrasound showed norm al bladder, but she refused transvaginal exam. Abdominal ultrasound showed gallbladder stones and th ickening of the gallbladder, but normal common bile duct and positive Rice sign and heterogeneous l iver consistent with CT findings concerning for metastatic disease. ASSESSMENT AND PLAN: 1. Probable metastatic disease to the liver and lungs. 2. Elevated CEA and elevated CA-125. 3. Generalized abdominal pain. I discussed with the patient that her CT findings along with recent decline in clinical status and elevations in tumor markers, are all quite concerning for metastatic d isease. I would favor likely GI primary. She cannot recall ever having a prior colonoscopy. We florentin l administer bowel preparation tonight in anticipation of EGD and colonoscopy tomorrow. If this exam is negative, then I think the next step would probably be to consult Interventional Radiology for im aging-guided biopsy of one of these liver lesions. The patient understands and desires to proceed. Administer bowel preparation this evening. Thank you for the consultation. Please call any time with questions or concerns.
[2018-04-04 14:21] LABS: A/G Ratio 0.6 (0.7-1.7); Albumin 1.8 g/dL (2.9-4.4); Alpha 1 0.6 g/dL (0.0-0.4); Beta 0.9 g/dL (0.7-1.3); Gamma 0.6 g/dL (0.4-1.8); Globulin, Total 3.1 g/dL (2.2-3.9); M-Spike Not Observed g/dL (Not Observed)
--- NOTE | 2018-04-04 15:46 | CT ---
CT CHEST WITH CONTRAST: 04/04/18 HISTORY: Evaluate for metastatic disease. COMPARISON: None. FINDINGS: There are numerous scattered pulmonary nodules. The majority of these which measure under 5 mm. There is, however, a 9 mm nodule in the right upper lobe, axial image 13. Also in the right upper lobe is a 5 mm nodule. There is atelectasis in both lung bases. Dominant nodule in the superior segment left lower lobe measures 5 mm, peribronchial vascular. Thyroid is unremarkable. There is small prevascular lymph nodes measuring up to 5 mm short axis. There is right periaortic lymph node, series 2, image 2 0 measuring up to 5 mm in short axis. There is extensive hypodensities throughout the liver as previously described. There is a right 5th rib fracture through a lucency which may represent a pathologic fracture. Lower thoracic spine compression deformity is similar. Small left pleural effusion. Old posterior left sided 9th and 10th rib fractures. IMPRESSION: 1. Numerous small pulmonary nodules. Largest in the right upper lobe measuring 9 mm. This can be seen with metastatic disease. 2. Fracture of the right lateral 5th rib may be pathologic in nature as it is through a lytic fo cus. 3. Numerous hepatic hypodensities. This can be seen with metastatic disease versus infection. Hi stologic sampling may be beneficial. POS: [facility]
[2018-04-04] MEDS: traZODone HCl 50 MG TAB PO SCH (20:16)
[2018-04-04] MEDS ORDERED: Sodium Chloride 0.9% 500 ML IV SCH (21:45)
[2018-04-04] MEDS: Melatonin 3 MG TAB PO SCH ×2 (22:19)
--- NOTE | 2018-04-04 23:52 | PDOC.EVN ---
Event Note - Event Note Event Note: Received page after blood pressure check at 2054. BP was 77/47 and patient symptomatic, reporting increasing fatigue and lightheadedness. Orthostatic blood pressures and pulses were normal. Patient also had complaint of restless leg. She has hx of restless leg syndrome but does not take medication at home. Patient resting comfortably after 500ml NS bolus and melatonin.
[2018-04-05] MEDS ORDERED: Fleet Enema 133 ML BOT PR SCH (01:30)
[2018-04-05] MEDS: Levothyroxine Sodium 125 MCG TAB PO SCH (04:54)
--- NOTE | 2018-04-05 05:26 | PDOC.FM ---
- Subjective Subjective: Patient reports having a bad night last night. Did not tolerate bowel prep well. Nausea, vomiting, minimal stool. Received an enema with still unsatisfactory BM early this morning. Patient's abdomen is uncomfortable and she feels constipated but passing gas and some stool. Also had hypotensive event last night of , orthostatic BPs negative, given bolus, systolic since in 110s. She reports taking [place] 10 3-4 times per day at home for chronic low back pain , prescribed by PCP. Hx of constipation and will self disimpact - Objective MAR Reviewed: Yes Vital Signs & Weight: Vital Signs (12 hours) Temp Pulse Resp BP BP BP BP 04/05/18 00:00 98 F 91 16 95/60 04/04/18 22:34 87 113/76 04/04/18 21:35 88/63 L 04/04/18 21:15 97 90/57 L 88/63 L 85/56 L 04/04/18 20:55 77/47 L 04/04/18 20:30 97.2 F L 86 18 90/56 L 04/04/18 20:00 97.2 F L 86 18 90/56 L 04/04/18 17:28 98.3 F 82 22 H Pulse Ox 04/05/18 00:00 92 L 04/04/18 22:34 04/04/18 21:35 04/04/18 21:15 04/04/18 20:55 04/04/18 20:30 93 L 04/04/18 20:00 93 L 04/04/18 17:28 Weight Admit Weight 88.224 kg Weight 91.654 kg I&O: 04/03/18 04/04/18 04/05/18 06:59 06:59 06:59 Intake Total 4293 1120 Output Total 1600 400 Balance 2693 720 Result Diagrams: 04/05/18 05:28 04/05/18 05:28 Phys Exam - Physical Examination Respiratory: no wheezing, no rales, no rhonchi, clear to auscultation bilateral Cardiovascular: RRR, no significant murmur Gastrointestinal: soft, no distention hypoactive bowel sounds, diffuse slight TTP Musculoskeletal: edema present (+2 b/l LE) Neurological: non-focal, moves all 4 limbs Psychiatric: normal affect, A&O x 3 Dx/Plan (1) Elevated LFTs Code(s): R94.5 - ABNORMAL RESULTS OF LIVER FUNCTION STUDIES Status: Acute (2) Hypovolemia associated with vomiting Code(s): E86.1 - HYPOVOLEMIA Status: Acute (3) Metastatic disease Code(s): C79.9 - SECONDARY MALIGNANT NEOPLASM OF UNSPECIFIED SITE Status: Acute (4) Sepsis Code(s): A41.9 - SEPSIS, UNSPECIFIED ORGANISM Status: Acute (5) Depression Code(s): F32.9 - MAJOR DEPRESSIVE DISORDER, SINGLE EPISODE, UNSPECIFIED Status : Chronic (6) Hypertension Code(s): I10 - ESSENTIAL (PRIMARY) HYPERTENSION Status: Chronic (7) Hypothyroidism Code(s): E03.9 - HYPOTHYROIDISM, UNSPECIFIED Status: Chronic (8) Normocytic anemia Code(s): D64.9 - ANEMIA, UNSPECIFIED Status: Chronic (9) Osteoporosis Code(s): M81.0 - AGE-RELATED OSTEOPOROSIS W/O CURRENT PATHOLOGICAL FRACTURE Status: Chronic (10) Hyponatremia Code(s): E87.1 - HYPO-OSMOLALITY AND HYPONATREMIA Status: Resolved - Plan Plan: Sepsis 2/2 likely GI pathology -Presented with N/V/D, tachycardia, leukocytosis, and lactic acidosis suggestive of sepsis. Less likely to be of bacteremic origin -lactic acid trending down, Vancomycin (04/01) and Zosyn, discontinued 04/04. -FOBT negative. Stool studies not completed d/t formed stools. -UA neg -blood and urine cultures, no growth at 48hrs - Hypotension last night, resolved with 500mL bolus. Restarted IVF NS@125 since patient NPO Metastatic disease findings on liver and lung, unknown primary source - Found initially on CT ab/pelvis. Will continue workup to identify primary source - Consulted GI, Dr. Hatch. Plan for EGD and colonoscopy today. Appreciate further recommendations. - Patient denied transvaginal ultrasound, abdominal U/S did not visualize uterus or adnexa - CT chest showed multiple small pulmonary nodules, likely metastatic, largest one 9mm. R lateral 5th rib fx w/lytic focus - CEA 1195, CA-125 1248 - Oncology consult pending primary source DAY - Cr 1.3 today, 0.7 on admission and 1.05 yesterday - likely 2/2 contrast received yesterday and hypovolemia component as well - IVF as above - will avoid nephrotoxic medications Cholecystisis possible - RUQ US showed gallbladder filled with echogenic stones, sludge, thickened meléndez, positive Rice's sign. Metastatic lesions on liver. Possible cause for initial hospital presentation - RUQ still mildly TTP - N/V/D have resolved - pending HIDA scan as recommended by Dr. Varghese Leukocytosis - WBC 31 on admission, has been trending down - 24->27.3 today. Believed to be due to patient's other disease processes rather than infectious etiology. Normocytic anemia, stable -Ferritin 2594, iron studies suggest anemia of chronic disease -Continue to monitor. Elevated LFTs and total bilirubin likely secondary to metastatic disease -Work up per above. Continue to trend. Weakness - consult PT HTN - Held home medications today Chronic Low Back Pain - after "breaking back" 6 years ago - working towards better pain control today. IV morphine prn today since NPO and recent DAY Constipation - added bowel regimen Hypothyroidism - on synthroid -TSH 5.3, Free T4 wnl at .95, Free T3 low <1 Depression -Continue home medications Osteoporosis -Continue home medications Previous Tobacco Use - quit 6 years ago, 8 pack year hx Mild hyponatremia, resolved PPx: Lovenox for VTE prophylaxis, Protonix for GI prophylaxis. CODE STATUS: Full code Dispo: pending workup
[2018-04-05 06:44] LABS: ALT (SGPT) 34 U/L (8-55); AST (SGOT) 106 U/L (5-34); Albumin 2.6 g/dL (3.4-4.8); Alkaline Phosphatase 271 U/L (40-150); Anion Gap 17 mmol/L (10-20); BUN (Urea Nitrogen) 13 mg/dL (9.8-20.1); Bilirubin, Total 1.6 mg/dL (0.2-1.2); Calc. Creatinine Clearance 63 mL/min (70-130); Calcium 7.9 mg/dL (7.8-10.44); Carbon Dioxide 20 mmol/L (23-31); Chloride 105 mmol/L (98-107); Estimated GFR-MDRD 41; Globulin 3.4 g/dL (2.4-3.5); Glucose 67 mg/dL (80-115); Potassium 3.6 mmol/L (3.5-5.1); Sodium 138 mmol/L (136-145)
[2018-04-05] MEDS ORDERED: GoLYTELY 4,000 ml Bottle PO SCH ×2 (06:45→18:00)
[2018-04-05 06:47] LABS: Band 3 % (5-11); Hemoglobin 9.4 g/dL (12.0-16.0); Hypochromia SLIGHT = 6-15 cells (100X) (0-5/hpf); Lymphocytes 8 % (21-51); MDiff Complete? YES; Mean Corpuscular HGB CONC 31.9 g/dL (32.0-36.0); Mean Corpuscular Hemoglobin 25.6 pg (27.0-31.0); Mean Corpuscular Volume 80.1 fL (78.0-98.0); Mean Platelet Volume 9.1 fL (7.4-10.4); Monocytes 6 % (0-10); Neutrophil 83 % (42-75); PLT Morphology Comment Appears Adequate; Platelet Count 275 thou/uL (130-400); RBC Distribution Width 16.2 % (11.5-14.5); Red Blood Cell (RBC) Count 3.66 mill/uL (4.20-5.40); White Blood Cell (WBC) Count 27.3 thou/uL (4.8-10.8)
[2018-04-05] MEDS: Pantoprazole 40 MG VIAL IVP SCH (08:02)
[2018-04-05] MEDS: Ondansetron ODT 4 MG TAB PO PRN ×2 (08:08→22:26)
[2018-04-05] MEDS: Bupropion 150 MG XL TAB PO SCH (09:00)
[2018-04-05] MEDS: Senokot 8.6 MG TAB PO SCH ×2 (09:00→20:15)
[2018-04-05] MEDS: PARoxetine 20 MG TAB PO SCH (09:00)
[2018-04-05] MEDS: Calcium Carbonate + Vit D 1 TAB PO SCH ×2 (09:00→20:15)
[2018-04-05] MEDS: Lisinopril/Hydrochlorothiazide 10 mg/12.5 mg Tablet PO SCH (09:00)
[2018-04-05] MEDS: Enoxaparin Sodium 40 MG/0.4 ML SYRINGE SC SCH (09:00)
[2018-04-05] MEDS: Sodium Chloride 0.9% 1,000 ML IV SCH ×3 (09:19→23:52)
[2018-04-05] MEDS ORDERED: Lidocaine 1% PF 5 ML VIAL ONE (11:56)
[2018-04-05] MEDS ORDERED: PROPOFOL 200 MG/20 ML VIAL ONE (11:56)
[2018-04-05] MEDS ORDERED: ePHEDrine/0.9% NaCl/PF SYRINGE 50 mg/10 ml ONE (11:56)
--- NOTE | 2018-04-05 13:33 | EKG ---
Test Reason : ABD PAIN, TACHYCARDI Blood Pressure : / mmHG Vent. Rate : 118 BPM Atrial Rate : 118 BPM P-R Int : 142 ms QRS Dur : 100 ms QT Int : 310 ms P-R-T Axes : 029 004 027 degrees QTc Int : 434 ms Sinus tachycardia Septal infarct , age undetermined Abnormal ECG Confirmed by MARK ANNE, ELISEO ([id number]), multimedia editor OLIVIA LEON ([id number]) on 04/05/2018 1:32:48 PM Referred By: Confirmed By:ELISEO FLORES MD
--- NOTE | 2018-04-05 14:08 | ADD-PRG ---
DATE OF SERVICE: 04/05/2018 This is an addendum to the note of Dr. Lavern Madden. Ms. Guzman is currently undergoing her prep for a colonoscopy and EGD. She may need a liver biopsy following this. We will make further plans following her EGD and colonoscopy.
[2018-04-05] MEDS ORDERED: Promethazine HCl 25 MG/ML VIAL SLOW IVP PRN (16:36)
[2018-04-05] MEDS ORDERED: Promethazine HCl 25 MG/ML VIAL IM PRN (16:36)
[2018-04-05] MEDS ORDERED: Ondansetron HCl/PF 4 MG/2 ML Vial IVP PRN (16:36)
[2018-04-05] MEDS: Aspirin 81 mg Enteric Coated Tablet PO SCH (18:39)
[2018-04-05] MEDS: Folic Acid 1 MG TAB PO SCH (18:40)
[2018-04-05] MEDS: Polyethylene Glycol 3350 17 GM Packet PO SCH (18:48)
--- NOTE | 2018-04-05 19:00 | OP ---
DATE OF PROCEDURE: 04/05/2018 PROCEDURES: Esophagogastroduodenoscopy with biopsy, colonoscopy (incomplete). INDICATIONS FOR PROCEDURE: Abnormal GI imaging concerning for metastatic disease with unknown primary. DESCRIPTION OF PROCEDURES: After the risks and benefits of the procedure were explained to the patient including risks of bleeding, infection, perforation, reactions to anesthesia, aspiration and/or pain, informed consent was obtained. The patient was then taken to the endoscopy suite, where TIVA sedation was administered via propofol and anesthesia support. Once adequate sedation was achieved and after a digital rectal examination, the standard colonoscope was introduced to the rectum and advanced to the sigmoid/distal descending colon with further progress unable to be achieved due to a large amount of retained solid stool. The quality of the prep was poor. The patient tolerated the procedures well with no immediate perioperative complications. COLONOSCOPY FINDINGS DIGITAL RECTAL EXAMINATION: Large external hemorrhoids noted on external exam. COLON FINDINGS: A large amount of retained stool was initially removed from the rectal vault upon digital rectal examination. With advancement to the scope , I was able to reach the proximal sigmoid/distal descending colon, at which point further progress could not be achieved due to a large amount of retained solid stool that prevented further progression past this point. The colonic mucosa was then carefully examined upon withdrawal with no abnormality seen in the sigmoid colon or rectum. On retroflexion, there was [id number] size internal hemorrhoids noted as well. IMPRESSION: 1. A significant amount of solid colonic stool was seen in the distal descending/proximal sigmoid colon impeding progress and limiting visualization beyond this point. Further progress could not be achieved. 2. Normal-appearing mucosa within the sigmoid and rectum. 3. Large external and medium-sized internal hemorrhoids. RECOMMENDATIONS: 1. We will continue to trend H&H and transfuse as necessary to maintain an H&H of 7/. 2. We would place the patient on a clear liquid diet for the remainder of today with repeat GoLYTELY prep tonight in preparation for colonoscopy tomorrow. UPPER ENDOSCOPY FINDINGS Once the patient achieved adequate sedation, the standard gastroscope was introduced into the mouth with intubation of the esophagus, stomach, and the proximal small intestine with the findings listed below. The patient tolerated the procedure well with no immediate perioperative complications. EGD FINDINGS: Esophagus: Normal-appearing mucosa was seen in the proximal, mid, and distal esophagus. There was no evidence of erosions, ulcerations, mass lesions, or active/recent bleeding. Stomach: Normal-appearing mucosa was seen in the gastric cardia, fundus, antrum , and incisura. A small 3-4 mm superficial ulceration was seen at the junction between the gastric body and the antrum without any high-risk stigmata of active or recent bleeding. Multiple biopsies were obtained for evaluation of this gastric ulceration. Otherwise, the remainder of the stomach was normal with no additional evidence of erosions, ulcerations, mass lesions, or active/ recent bleeding. Duodenum: Normal-appearing mucosa was seen in both the duodenal bulb and second portion of the duodenum. There was no evidence of erosions, ulcerations , mass lesions, or active/recent bleeding. IMPRESSION: 1. A 3-4 mm gastric ulceration without high-risk stigmata of bleeding, status post biopsies. 2. Otherwise, normal upper endoscopy. RECOMMENDATIONS: 1. We will follow up on the biopsy results with further upper endoscopies based on pathology findings. 2. We would continue pantoprazole 40 mg daily. 3. We would avoid NSAIDs. 4. Repeat colonoscopy as above. [facility]
[2018-04-05] MEDS: traZODone HCl 50 MG TAB PO SCH (20:15)
[2018-04-06] MEDS ORDERED: Promethazine 25 MG TAB PO PRN (01:32)
[2018-04-06] MEDS ORDERED: Promethazine HCl 25 MG/ML VIAL IM PRN (01:32)
[2018-04-06] MEDS ORDERED: Furosemide 40 MG/4 ML VIAL ONE (05:13)
[2018-04-06 05:17] LABS: ALT (SGPT) 36 U/L (8-55); AST (SGOT) 109 U/L (5-34); Albumin 2.6 g/dL (3.4-4.8); Alkaline Phosphatase 259 U/L (40-150); Anion Gap 22 mmol/L (10-20); BUN (Urea Nitrogen) 17 mg/dL (9.8-20.1); Bilirubin, Total 1.7 mg/dL (0.2-1.2); Calc. Creatinine Clearance 60 mL/min (70-130); Calcium 7.5 mg/dL (7.8-10.44); Carbon Dioxide 19 mmol/L (23-31); Chloride 104 mmol/L (98-107); Estimated GFR-MDRD 39; Globulin 3.4 g/dL (2.4-3.5); Glucose 72 mg/dL (80-115); Potassium 3.1 mmol/L (3.5-5.1); Sodium 142 mmol/L (136-145)
--- NOTE | 2018-04-06 05:37 | PDOC.EVN ---
Event Note - Event Note Event Note: Residents paged to bedside at approximately 455 am for patient becoming increasingly short of breath. She had been nauseous with vomiting throughout the night which was not improved with Zofran. Phenergan added throughout the night with some improvement. At approximately 4:30, nursing reports she quickly became short of breath along with new lower extremity edema. Her O2 sat was found to be in the 70s and she was placed on venti-mask with improvement to the mid-80s. Residents arrived at the bedside at approximately 500. A code green was called and the patient was given 40 mg IV lasix and transferred to the [facility] for BiPAP. CXR, trop, d-dimer ordered. Patient's saturations improved to 100% on BiPAP. CXR shows diffuse white-out of RML and RLL. She is feeling somewhat improved at this time. Pulse has been in the mid-90s to low 100s. Currently 91% . BP was elevated at time of code being called and is currently 91/58 with MAP 66. Garcia placed for strict I/Os. Will continue to monitor closely.
[2018-04-06 05:42] LABS: CO2 Tension 46.8 mmHg (35.0-45.0); pH, Arterial 7.28 (7.35-7.45)
[2018-04-06 05:43] LABS: Actual Bicarbonate (HCO3a) 21.6 mEq/L (22-28); Carboxyhemoglobin (COHb) 0.7 gm% (0.0-3.0); Hemoglobin (Hb) 10.5 g/dL (12.0-16.0); O2 Tension (PaO2) 78.6 mmHg (> 80.0); Potassium - ABG Lab 3.4 mmol/L (3.70-5.30); Puncture Site RRA
[2018-04-06 05:57] LABS: CKMB 1.7 ng/mL (0-6.6); Troponin I Less than 0.010 ng/mL (< 0.028)
[2018-04-06 06:36] LABS: Band 10 % (5-11); Hemoglobin 10.1 g/dL (12.0-16.0); Lymphocytes 7 % (21-51); MDiff Complete? YES; Mean Corpuscular HGB CONC 31.4 g/dL (32.0-36.0); Mean Corpuscular Hemoglobin 25.1 pg (27.0-31.0); Mean Corpuscular Volume 79.9 fL (78.0-98.0); Mean Platelet Volume 8.7 fL (7.4-10.4); Monocytes 6 % (0-10); Neutrophil 77 % (42-75); Platelet Count 321 thou/uL (130-400); RBC Distribution Width 16.3 % (11.5-14.5); Red Blood Cell (RBC) Count 4.01 mill/uL (4.20-5.40)
[2018-04-06] MEDS: Levothyroxine Sodium 125 MCG TAB PO SCH (06:38)
[2018-04-06 07:03] LABS: D-Dimer Test 7.86 *mcg/mL (0.27-0.43)
--- NOTE | 2018-04-06 08:45 | RAD ---
PORTABLE CHEST: Date: 04/06/18 PROVIDED CLINICAL HISTORY: Hypoxia. FINDINGS: Comparison with 04/03/18. There is elevation of the right hemidiaphragm versus subpulmonic pleural effusion on the right. This represents an interval change with respect to the prior study. The left lung remains clear. There is no evidence for pneumothorax. Cardiac and mediastinal silhouette is not definitely changed in appeara nce. IMPRESSION: Interval elevation of right hemidiaphragm versus subpulmonic right pleural effusion. POS: [facility]
[2018-04-06 09:50] LABS: INR-International Normal Ratio 1.3; Prothrombin Time 16.5 SEC (12.0-14.7)
[2018-04-06 09:51] LABS: PTT 32.1 SEC (22.9-36.1)
[2018-04-06] MEDS ORDERED: ISOVUE-370 76%-LOCM 1 ML ONE (09:57)
[2018-04-06] MEDS: Bupropion 150 MG XL TAB PO SCH (10:02)
[2018-04-06] MEDS: Folic Acid 1 MG TAB PO SCH (10:02)
[2018-04-06] MEDS: PARoxetine 20 MG TAB PO SCH (10:02)
[2018-04-06] MEDS: Senokot 8.6 MG TAB PO SCH ×2 (10:02→20:29)
[2018-04-06] MEDS: Calcium Carbonate + Vit D 1 TAB PO SCH ×2 (10:02→21:04)
[2018-04-06] MEDS: Pantoprazole 40 MG VIAL IVP SCH (10:03)
[2018-04-06] MEDS: Piperacillin/Tazobactam 3.375 GM in Sodium Chloride 0.9% 100 ML IVPB SCH ×3 (10:03→21:04)
[2018-04-06] MEDS: Enoxaparin Sodium 40 MG/0.4 ML SYRINGE SC SCH (10:03)
[2018-04-06] MEDS: Polyethylene Glycol 3350 17 GM Packet PO SCH (10:04)
--- NOTE | 2018-04-06 11:46 | PDOC.FM ---
- Subjective Subjective: Ms. Guzman was transferred early this morning to [facility] after a code green for acute hypoxic respiratory failure. Patient reports the mask is uncomfortable but she is feeling better than she did last night. Pt reports noticing increased b/l LE edema yesterday afternoon and started feeling SOB which progressed overnight, requiring supplemental O2 and then the code green. Her biggest concern in labial burning from the catheter. Patient has never had Lasix in past. - Objective MAR Reviewed: Yes Vital Signs & Weight: Vital Signs (12 hours) Temp Pulse Resp BP Pulse Ox 04/06/18 08:00 97.9 F 84 23 H 92 L 04/06/18 07:07 88 04/06/18 06:48 98.6 F 04/06/18 05:45 100 04/06/18 05:30 98.6 F 88 38 H 100 04/06/18 00:00 97.8 F 92 20 105/72 94 L Weight Admit Weight 88.224 kg Weight 91.654 kg Most Recent Monitor Data Heart Rate from ECG 89 NIBP 111/58 NIBP BP-Mean 77 Respiration from ECG 27 SpO2 95 I&O: 04/05/18 04/06/18 04/07/18 06:59 06:59 06:59 Intake Total 4500 1420 Output Total 300 75 Balance 4500 1120 -75 Result Diagrams: 04/06/18 03:31 04/06/18 03:31 Phys Exam - Physical Examination on BIPAP, uncomfortable decreased breath sounds in RLL. No wheezing, rhonchi, rales Cardiovascular: RRR, no significant murmur Gastrointestinal: soft, non-tender, no distention, positive bowel sounds Musculoskeletal: edema present 2+ pitting edema b/l, increased from yesterday Neurological: non-focal, normal sensation, moves all 4 limbs Psychiatric: normal affect, A&O x 3 Dx/Plan (1) Elevated LFTs Code(s): R94.5 - ABNORMAL RESULTS OF LIVER FUNCTION STUDIES Status: Acute (2) Hypovolemia associated with vomiting Code(s): E86.1 - HYPOVOLEMIA Status: Acute (3) Metastatic disease Code(s): C79.9 - SECONDARY MALIGNANT NEOPLASM OF UNSPECIFIED SITE Status: Acute (4) Sepsis Code(s): A41.9 - SEPSIS, UNSPECIFIED ORGANISM Status: Acute (5) Depression Code(s): F32.9 - MAJOR DEPRESSIVE DISORDER, SINGLE EPISODE, UNSPECIFIED Status : Chronic (6) Hypertension Code(s): I10 - ESSENTIAL (PRIMARY) HYPERTENSION Status: Chronic (7) Hypothyroidism Code(s): E03.9 - HYPOTHYROIDISM, UNSPECIFIED Status: Chronic (8) Normocytic anemia Code(s): D64.9 - ANEMIA, UNSPECIFIED Status: Chronic (9) Osteoporosis Code(s): M81.0 - AGE-RELATED OSTEOPOROSIS W/O CURRENT PATHOLOGICAL FRACTURE Status: Chronic (10) Hyponatremia Code(s): E87.1 - HYPO-OSMOLALITY AND HYPONATREMIA Status: Resolved (11) Acute respiratory failure with hypoxia and hypercapnia Code(s): J96.01 - ACUTE RESPIRATORY FAILURE WITH HYPOXIA; J96.02 - ACUTE RESPIRATORY FAILURE WITH HYPERCAPNIA Status: Acute (12) Hypokalemia Code(s): E87.6 - HYPOKALEMIA Status: Acute - Plan Plan: Acute hypoxic respiratory failure - on BIPAP with FiO2 40%, satting 93% - Pulmonology, Dr. Hartman, consulted, appreciate recommendations - 40 IV lasix given at 0500 04/06 during code green - BNP 111, D-dimer elevated, troponins neg - Monitor I/Os - pending Chest CTA, echo Metastatic disease findings on liver and lung, unknown primary source - Found initially on CT ab/pelvis. Will continue workup to identify primary source - Consulted GI, Dr. Hatch. Plan for repeat colonoscopy today. Appreciate further recommendations. - EGD performed 04/06, gastric ulcer was biopsied. Colonoscopy unable to be completed d/t hard stool - Patient denied transvaginal ultrasound, abdominal U/S did not visualize uterus or adnexa - CT chest showed multiple small pulmonary nodules, likely metastatic, largest one 9mm. R lateral 5th rib fx w/lytic focus - CEA 1195, CA-125 1248 - Oncology consult pending primary source Sepsis 2/2 likely GI pathology on initial presentation -Presented with N/V/D, tachycardia, leukocytosis, and lactic acidosis suggestive of sepsis. Less likely to be of bacteremic origin -lactic acid trending down, Vancomycin (04/01) and Zosyn, discontinued 04/04. -FOBT negative. Stool studies not completed d/t formed stools. -UA neg -blood and urine cultures, no growth Gastric Ulcer - found on EGD - biopsy pending - avoid NSAIDS and continue protonix Hypokalemia - 3.1 this am - replaced with 40 meq IV DAY - Cr 1.36 today, stable - likely 2/2 contrast received and hypovolemia component as well - IVF as above - will avoid nephrotoxic medications Cholecystisis possible - RUQ US showed gallbladder filled with echogenic stones, sludge, thickened meléndez, positive Rice's sign. Metastatic lesions on liver. Possible cause for initial hospital presentation - RUQ still mildly TTP - N/V/D have resolved - pending HIDA scan as recommended by Dr. Varghese Leukocytosis - WBC 31 on admission, now has been trending up - 24->27.3->32 today. Normocytic anemia, stable -Ferritin 2594, iron studies suggest anemia of chronic disease -Continue to monitor. Elevated LFTs and total bilirubin likely secondary to metastatic disease -Work up per above. Continue to trend. Weakness - consult PT HTN - Held home medications today Chronic Low Back Pain - after "breaking back" 6 years ago - IV morphine prn Constipation - added bowel regimen Hypothyroidism - on synthroid -TSH 5.3, Free T4 wnl at .95, Free T3 low <1 Depression -Continue home medications Osteoporosis -Continue home medications Previous Tobacco Use - quit 6 years ago, 8 pack year hx Mild hyponatremia, resolved PPx: Lovenox for VTE prophylaxis, Protonix for GI prophylaxis. CODE STATUS: Full code Dispo: pending workup
--- NOTE | 2018-04-06 11:56 | CON ---
DATE OF CONSULTATION: 04/06/2018 This is a 62-year-old female who normally seeks care at the [facility]. She presented on 04/01/2018 w ith nausea, vomiting, diarrhea. In the course of workup, a CT was done and ultrasound which revealed findings suggestive of metastatic liver disease. Last night she developed shortness of breath, hypoxemia. She was transferred to the ICU. She has be en on BiPAP, sats were 98 on BiPAP. She is able to converse, says she is having no difficulty breath ing at the present time or any chest pain. Chest x-ray on admission was unremarkable, now shows an elevated right hemidiaphragm with some loss o f volume in the right lung consistent with probably a right mainstem obstruction. A CT angio is being ordered. No coughing or hemoptysis. PAST MEDICAL HISTORY: Chronic back pain, hypertension, depression. PAST SURGICAL HISTORY: Appendix, ovary. SOCIAL HISTORY: She is a in the [place]. No alcohol or tobacco abuse. MEDICATIONS: Her list of medicine from home, presumably includes lisinopril 1 tablet a day, methocar bamol 500 three times a day, trazodone 100, aspirin, Synthroid 125, verapamil 240, bupropion 300, ris peridone 0.5 alendronate 70. ALLERGIES: SULFA. REVIEW OF SYSTEMS: Otherwise, unremarkable. PHYSICAL EXAMINATION: VITAL SIGNS: Sats are 93-94%, blood pressure 110/80, pulse 80, respirations 18. CHEST: Chest reveals decreased breath sounds in the right lung without any wheezing. Left lung unre markable. CARDIAC: Normal S1, S2, no gallops. ABDOMEN: Soft. LABORATORY: White count 32,000, H&H 10 and 32, platelet count 321. D-dimer 7.86. PO2 is 78, pCO2 4 7.28 on BiPAP, creatinine 1.36. IMPRESSION: 1. Hypoxemia, abnormal x-ray. 2. Abnormal liver scan. 3. Abdominal pain, nausea, vomiting, GI workup. PLAN: A CT angio is being ordered. In the meantime, empiric antibiotics, supportive care, and PT. W e will follow. Consultation of 70 minutes, 50% spent in direct patient care.
--- NOTE | 2018-04-06 12:00 | CT ---
CTA OF THE THORAX UTILIZING IV CONTRAST AND 3D REFORMATTED IMAGING AND PE PROTOCOL: INDICATION: Concern for PE; right-sided heart strain, hypoix with large pleural effusion. FINDINGS: There has been interval development of airspace consolidation of the right middle lobe and lower lobe suspicious for aspiration or pneumonia. There is a small right pleural effusion. Small pulmonary n odules within both lungs are similar to the comparison study dated 03/27/18. Numerous hepatic hypoden sities are again seen. There is mild cardiomegaly. No definite central or segmental pulmonary embolus is grossly evident. Again seen is focal eventrati on of the right hemidiaphragm. There is a stable pathologic fracture involving the lateral right rib . There are numerous patchy lucencies involving the lumbar spine suspicious for osseous metastatic d isease. A screw hole is present within the lower thoracic spine likely related to prior instrumentat ion. IMPRESSION: 1. No definite central or segmental pulmonary embolus. 2. Interval development of airspace consolidation right middle lobe and right lower lobe suspicious for aspiration or pneumonia. 3. Small right pleural effusion. 4. Persistent eventration of the right hemidiaphragm. 5. Stable pulmonary nodules. 6. Stable hepatic hypodensity suspicious for metastatic disease. 7. Patchy areas of lucency involving the thoracolumbar spine suspicious for metastatic disease. The re is a suspected pathologic fracture involving the lateral right 5th rib. POS: [facility]
[2018-04-06] MEDS: Sodium Chloride 0.9% 1,000 ML IV SCH ×2 (12:08→22:27)
[2018-04-06] MEDS: Potassium Chloride 20 MEQ in Premix Bag 1 BAG IVPB SCH ×2 (12:08→12:59)
--- NOTE | 2018-04-06 15:09 | ADD-PRG ---
DATE OF SERVICE: 04/06/2018 Please add this as an addendum to the note of Dr. Lavern Madden. Ms. Trammell developed some hypertension and respiratory distress very early this morning and was transf erred to the Intensive Care Unit. Her subsequent workup has shown what appears to be an aspiration p neumonia and possibly some more elevation of her right hemidiaphragm from an enlarged liver and possi ble hepatic bleed. In the event, she has been started on broad-spectrum antibiotics per Dr. Hartman. S he initially required BiPAP, but is now comfortable on nasal cannula. GI is also following the patie nt. We will ask for their opinion about possible liver bleed. For now, we will continue with her warren pportive care with antibiotics, cautious fluids while we await further workup for her metastatic dise ase.
[2018-04-06 15:44] LABS: Hemoglobin 9.6 g/dL (12.0-16.0)
--- NOTE | 2018-04-06 17:07 | EKG ---
Test Reason : Blood Pressure : / mmHG Vent. Rate : 105 BPM Atrial Rate : 105 BPM P-R Int : 168 ms QRS Dur : 096 ms QT Int : 364 ms P-R-T Axes : 022 015 138 degrees QTc Int : 481 ms Sinus tachycardia Possible Anterior infarct (cited on or before 01-APR-2018) Nonspecific T wave abnormality Abnormal ECG Confirmed by NITO FORMAN ([id number]) on 04/06/2018 5:07:30 PM Referred By: SUZANNE Confirmed By:NITO FORMAN
--- NOTE | 2018-04-06 18:25 | PRG ---
DATE OF SERVICE: 04/06/2018 GI INPATIENT DAILY PROGRESS NOTE SUBJECTIVE: Ms. Guzman had her EGD yesterday showing a small benign appearing gastric ulcer which w as biopsied. The colonoscopy was unable to be completed because the bowel preparation was poor. The patient went back to the floor and started working on another bottle of GoLYTELY. Unfortunately, yuli montalvo had some nausea and vomiting with this and then overnight she had some desaturations. It appears t hat she appears she likely aspirated some of the bowel prep. She was sent to the ICU and was on BiPA P for some time. She is now off BiPAP, still complaining of a little shortness of breath, but no cou gh. Oxygen saturations are variable through the afternoon. Nursing reports that she has had 3 large bowel movements finally this afternoon. These are brown and muddy, certainly not clear. The patien t denies any abdominal pain or nausea at this time. She has remained on clear liquids. OBJECTIVE: VITAL SIGNS: 85% oxygen saturation on 2 liters nasal cannula, temperature 98.1, pulse 88, blood pres sure 106/56. GENERAL: Mild respiratory distress, alert, awake, pleasant, answering questions appropriately. HEART: Regular rate and rhythm. LUNGS: Mild tachypnea, some decreased breath sounds at the right base. No wheezing. ABDOMEN: Mild distention. Dull to percussion, nontender to palpation. EXTREMITIES: 1+ bilateral lower extremity edema. LABORATORY STUDIES: WBC 32.0, hemoglobin 9.6, hematocrit 28.8, platelets 321. INR 1.3. Sodium 142, potassium 3.1, BUN 17, creatinine 1.36. Total bilirubin 1.7, alkaline phosphatase 259, AST 109, ALT 36. Troponin negative. BNP 111.4. IMAGING STUDIES: Chest x-ray shows elevation of the right hemidiaphragm versus subpulmonic right ple ural effusion. CTA of the thorax demonstrated airspace consolidation in the right middle lobe and ri ght lower lobe suspicious for aspiration. No evidence of pulmonary embolus some eventration of the r ight hemidiaphragm and hepatic hypodensities consistent with metastatic disease. ASSESSMENT AND PLAN: 1. Metastatic disease to liver and lung, unknown primary. 2. Elevated CEA and CA-125. 3. Gastric ulcer, appeared benign on endoscopy, biopsies pending. 4. Aspiration pneumonia. I had a long discussion with the patient today regarding workup for her metastatic disease. She real ly does need to undergo completion of colonoscopy to rule out a colonic primary. I actually do have a high suspicion for this, particularly as it seems the bowel preparation has been difficult and I wo nder if this may be due to a colonic mass. She is not completely obstructed and is now having loss o f bowel movements this afternoon. Regardless, I do not think she is stable enough from a pulmonary p erspective to undergo colonoscopy at this time. We will reassess tomorrow and see how she is doing w ith her oxygenation and also whether she has continued to pass the bowel prep. We will make decision s from there, but hopefully be able to complete colonoscopy within the next few days.
[2018-04-06] MEDS: hydrOXYzine 25 MG TAB PO PRN (21:04)
[2018-04-06] MEDS: Melatonin 3 MG TAB PO PRN (21:04)
[2018-04-06] MEDS: traZODone HCl 50 MG TAB PO SCH (21:04)
[2018-04-07] MEDS: hydrOXYzine 25 MG TAB PO PRN ×3 (02:36→21:38)
[2018-04-07] MEDS: Sodium Chloride 0.9% 1,000 ML IV SCH (02:38)
[2018-04-07] MEDS: Piperacillin/Tazobactam 3.375 GM in Sodium Chloride 0.9% 100 ML IVPB SCH ×4 (02:39→21:36)
[2018-04-07 05:18] LABS: ALT (SGPT) 36 U/L (8-55); AST (SGOT) 123 U/L (5-34); Albumin 2.3 g/dL (3.4-4.8); Alkaline Phosphatase 262 U/L (40-150); Anion Gap 19 mmol/L (10-20); BUN (Urea Nitrogen) 23 mg/dL (9.8-20.1); Bilirubin, Total 1.7 mg/dL (0.2-1.2); Calc. Creatinine Clearance 52 mL/min (70-130); Calcium 7.1 mg/dL (7.8-10.44); Carbon Dioxide 23 mmol/L (23-31); Chloride 104 mmol/L (98-107); Estimated GFR-MDRD 33; Globulin 2.8 g/dL (2.4-3.5); Glucose 105 mg/dL (80-115); Protein, Total 5.1 g/dL (6.0-8.3); Sodium 143 mmol/L (136-145)
[2018-04-07 05:24] LABS: Potassium 2.5 mmol/L (3.5-5.1)
--- NOTE | 2018-04-07 05:41 | PDOC.FM ---
- Subjective Subjective: Patient has been on bipap all night. Unable to maintains saturations at 5L NC last night. Patient reports she is thirsty. Otherwise, no new complaints. Has had 5 BMs overnight, still brown with some formed stools per nurse. - Objective MAR Reviewed: Yes Vital Signs & Weight: Vital Signs (12 hours) Temp Pulse Resp Pulse Ox 04/07/18 02:20 86 04/06/18 22:24 83 04/06/18 20:00 98.2 F 83 22 H 93 L 04/06/18 19:00 98.2 F Weight Admit Weight 88.224 kg Weight 91.654 kg Most Recent Monitor Data Heart Rate from ECG 82 NIBP 119/59 NIBP BP-Mean 94 Respiration from ECG 18 SpO2 93 I&O: 04/05/18 04/06/18 04/07/18 06:59 06:59 06:59 Intake Total 4500 1420 1680 Output Total 300 980 Balance 4500 1120 700 Result Diagrams: 04/07/18 04:29 04/07/18 04:29 Phys Exam - Physical Examination On bipap Respiratory: no wheezing, no rales, no rhonchi Decreased breath sounds RLL, on bipap Cardiovascular: RRR, no significant murmur Gastrointestinal: soft, non-tender, no distention, positive bowel sounds 2+ pitting edema bilaterally Neurological: non-focal, moves all 4 limbs Psychiatric: normal affect, A&O x 3 Dx/Plan (1) Elevated LFTs Code(s): R94.5 - ABNORMAL RESULTS OF LIVER FUNCTION STUDIES Status: Acute (2) Hypovolemia associated with vomiting Code(s): E86.1 - HYPOVOLEMIA Status: Acute (3) Metastatic disease Code(s): C79.9 - SECONDARY MALIGNANT NEOPLASM OF UNSPECIFIED SITE Status: Acute (4) Sepsis Code(s): A41.9 - SEPSIS, UNSPECIFIED ORGANISM Status: Acute (5) Depression Code(s): F32.9 - MAJOR DEPRESSIVE DISORDER, SINGLE EPISODE, UNSPECIFIED Status : Chronic (6) Hypertension Code(s): I10 - ESSENTIAL (PRIMARY) HYPERTENSION Status: Chronic (7) Hypothyroidism Code(s): E03.9 - HYPOTHYROIDISM, UNSPECIFIED Status: Chronic (8) Normocytic anemia Code(s): D64.9 - ANEMIA, UNSPECIFIED Status: Chronic (9) Osteoporosis Code(s): M81.0 - AGE-RELATED OSTEOPOROSIS W/O CURRENT PATHOLOGICAL FRACTURE Status: Chronic (10) Hyponatremia Code(s): E87.1 - HYPO-OSMOLALITY AND HYPONATREMIA Status: Resolved (11) Acute respiratory failure with hypoxia and hypercapnia Code(s): J96.01 - ACUTE RESPIRATORY FAILURE WITH HYPOXIA; J96.02 - ACUTE RESPIRATORY FAILURE WITH HYPERCAPNIA Status: Acute (12) Hypokalemia Code(s): E87.6 - HYPOKALEMIA Status: Acute - Plan Plan: Metastatic disease findings on liver and lung, unknown primary source - Found initially on CT ab/pelvis. Will continue workup to identify primary source - Consulted GI, Dr. Hatch. Plan for repeat colonoscopy possibly today. Appreciate further recommendations. - EGD performed 04/06, gastric ulcer was biopsied. Colonoscopy unable to be completed d/t hard stool - Patient denied transvaginal ultrasound, abdominal U/S did not visualize uterus or adnexa - CT chest showed multiple small pulmonary nodules, likely metastatic, largest one 9mm. R lateral 5th rib fx w/lytic focus - CEA 1195, CA-125 1248 - Oncology consult pending primary source - Has been NPO a couple days, IVF NS @ 70 Acute hypoxic respiratory failure - on bipap with FiO2 40% - Pulmonology, Dr. Hartman, consulted, appreciate recommendations. - Continue Zosyn (04/06) - 40 IV lasix given at 0500 04/06 during code green, has had adequate urine output since yesterday - BNP 111, D-dimer elevated, troponins neg - Monitor I/Os - Chest CTA neg for PE. showed possible aspiration pneumonia, small R pleural effusion, spine mets, R hemidiaphragm eventration - Echo: EF >60-65%, mod enlarged RV, LA mod-severely dilated, mild-mod tricuspid regurg - repeat chest xray this am pending Gastric Ulcer - 3-4mm found on EGD, did not appear to be malignant - biopsy pending - avoid NSAIDS and continue protonix Hypokalemia - 3.1 -> 2.5 - replaced with 40 meq IV, nurse infusing slowly (10meq/hr) d/t pt discomfort via peripheral line - mag pending, recheck @ 1100 DAY - Cr 1.36-> 1.59 today - likely 2/2 contrast received and hypovolemia component as well - IVF as above - will avoid nephrotoxic medications Leukocytosis, downtrending - WBC 31 on admission - 24->27.3->32->22 Cholecystisis possible - RUQ US showed gallbladder filled with echogenic stones, sludge, thickened meléndez, positive Rice's sign. Metastatic lesions on liver. Possible cause for initial hospital presentation - RUQ still mildly TTP - N/V/D have resolved - pending HIDA scan Sepsis 2/2 likely GI pathology on initial presentation -Presented with N/V/D, tachycardia, leukocytosis, and lactic acidosis suggestive of sepsis. Less likely to be of bacteremic origin -Originally on Vancomycin (04/01) and Zosyn, discontinued 04/04. -FOBT negative. Stool studies not completed d/t formed stools. -UA neg -blood and urine cultures, no growth Normocytic anemia, stable -Ferritin 2594, iron studies suggest anemia of chronic disease -Continue to monitor. Elevated LFTs and total bilirubin likely secondary to metastatic disease -Work up per above. Continue to trend. Weakness - consult PT HTN - Held home medications today Chronic Low Back Pain - after "breaking back" 6 years ago - IV morphine prn Constipation - Bowel regimen, golitely for colonoscopy prep Hypothyroidism - on synthroid -TSH 5.3, Free T4 wnl at .95, Free T3 low <1 Depression -Continue home medications Osteoporosis -Continue home medications Previous Tobacco Use - quit 6 years ago, 8 pack year hx Mild hyponatremia, resolved PPx: Lovenox for VTE prophylaxis, Protonix for GI prophylaxis. CODE STATUS: Full code Dispo: pending workup
[2018-04-07 05:43] LABS: Band 13 % (5-11); Eosinophils 1 % (0-10); Hemoglobin 8.8 g/dL (12.0-16.0); Lymphocytes 6 % (21-51); MDiff Complete? YES; Mean Corpuscular HGB CONC 33.6 g/dL (32.0-36.0); Mean Corpuscular Hemoglobin 26.4 pg (27.0-31.0); Mean Corpuscular Volume 78.4 fL (78.0-98.0); Monocytes 8 % (0-10); Neutrophil 72 % (42-75); Platelet Count 186 thou/uL (130-400); RBC Distribution Width 16.3 % (11.5-14.5); Red Blood Cell (RBC) Count 3.35 mill/uL (4.20-5.40); White Blood Cell (WBC) Count 22.1 thou/uL (4.8-10.8)
[2018-04-07] MEDS: Levothyroxine Sodium 125 MCG TAB PO SCH (06:07)
[2018-04-07] MEDS: Potassium Chloride 20 MEQ in Premix Bag 1 BAG IVPB SCH ×2 (08:44→13:47)
[2018-04-07] MEDS: Bupropion 150 MG XL TAB PO SCH (08:44)
[2018-04-07] MEDS: Enoxaparin Sodium 40 MG/0.4 ML SYRINGE SC SCH (08:44)
[2018-04-07] MEDS: Senokot 8.6 MG TAB PO SCH ×2 (08:45→21:36)
[2018-04-07] MEDS: Polyethylene Glycol 3350 17 GM Packet PO SCH (08:45)
[2018-04-07] MEDS: Calcium Carbonate + Vit D 1 TAB PO SCH ×2 (08:45→21:37)
[2018-04-07] MEDS: PARoxetine 20 MG TAB PO SCH (08:45)
[2018-04-07] MEDS: Folic Acid 1 MG TAB PO SCH (08:45)
--- NOTE | 2018-04-07 08:49 | PRG ---
DATE OF SERVICE: 04/07/2018 This morning she appears to be somewhat better. She is complaining of diarrhea. She is less short o f breath. PHYSICAL EXAMINATION: VITAL SIGNS: Sats are 95% on 4 liters, pulse 85, blood pressure 120/80, respiration 28. I's and O's 1420 in, 3000 out. CHEST: Chest reveals decreased breath sounds without any wheezing. CARDIAC: Normal S1, S2. No gallops. ABDOMEN: Soft, no masses. LABORATORY DATA: Creatinine is 1.5. BNP is normal. Liver function slightly elevated. Potassium 2. 5. White count 22,000. X-ray shows right upper lobe, right middle lobe pneumonia. IMPRESSION: 1. Right pneumonia, possibly aspiration. 2. Multiple liver lesions, consistent with metastatic disease. 3. Status post upper GI endoscopy. PLAN: I doubt patient has a primary lung cancer, at this stage, though, initial x-ray 48 hours ago d id not show any masses or any lesions. Markedly elevated right hemidiaphragm. Continue Zosyn and supportive care, neb treatment. She may need eventually a tissue diagnosis to confirm her neoplastic process. I will follow.
--- NOTE | 2018-04-07 09:14 | PRG ---
DATE OF SERVICE: 04/07/2018 This morning Ms. Guzman is much improved. She states she only has minimal shortness of breath. She is having no chest pain and appears alert and comfortable. This morning's labs did reveal a low potassium and this will be replaced. Currently, her vital signs are stable with a blood pressure 122/65, O2 sat is 94% on nasal cannula and she is afebrile. Lungs sound clearer, although still diminished on the right side. In retrospect, it would appear she had a n aspiration pneumonia, possibly from her prep for the colonoscopy. In any event, clinically she has improved. We will discuss with GI if she will likely need to have her colonoscopy early next week. We will continue her on antibiotics for her pneumonia. We will continue to follow with the intensiv ist in anticipation of likely transfer to the floor by tomorrow.
[2018-04-07] MEDS: Ondansetron ODT 4 MG TAB PO PRN (09:59)
--- NOTE | 2018-04-07 10:48 | RAD ---
PORTABLE AP CHEST: Date: 04/07/18 HISTORY: Pneumonia. COMPARISON: 04/06/18. FINDINGS: Again noted is prominent elevation of the right hemidiaphragm. There is atelectasis present at the le ft lung base. Right cardiac border is obscured. Patient is rotated to the left, accentuating the medi astinum and cardiac silhouette. There are patchy parenchymal changes at the right lung base, probably also related to atelectasis. Findings are overall stable compared to the prior exam. IMPRESSION: 1. Prominent elevation of the right hemidiaphragm. 2. Bibasilar atelectasis. POS: [facility]
[2018-04-07 12:33] LABS: Anion Gap 17 mmol/L (10-20); BUN (Urea Nitrogen) 21 mg/dL (9.8-20.1); Calc. Creatinine Clearance 53 mL/min (70-130); Calcium 7.2 mg/dL (7.8-10.44); Carbon Dioxide 23 mmol/L (23-31); Chloride 105 mmol/L (98-107); Estimated GFR-MDRD 34; Glucose 109 mg/dL (80-115); Sodium 142 mmol/L (136-145)
[2018-04-07 12:34] LABS: Potassium 2.8 mmol/L (3.5-5.1)
--- NOTE | 2018-04-07 14:11 | PRG ---
DATE OF SERVICE: 04/07/2018 SUBJECTIVE: The patient feels about the same. She continues to have intermittent shortness of breat h and her oxygen requirements have remained pretty high. She has not had any abdominal pain. She lemons s continued to pass a lot of loose stools. She feels that there are clearing up and no longer solid. She is really not wanting to drink anymore bowel preparation, understandably so. OBJECTIVE: VITAL SIGNS: Temperature 98.1, pulse 87, blood pressure 109/54, 95% oxygen saturation on 5 liters by nasal cannula, respirations 24 per minute. GENERAL: Ill-appearing 62-year-old woman lying in bed, in no acute distress, mildly tachypneic thoug h. HEART: Regular rate and rhythm. LUNGS: Crackles and reduced breath sounds on the right side. ABDOMEN: Obese, nondistended, bowel sounds are present. Nontender to palpation. EXTREMITIES: No peripheral edema. LABORATORY STUDIES: WBC down to 22.1, hemoglobin 8.8, platelets 186. Sodium 142, potassium 2.8, BUN 21, creatinine 1.55. ASSESSMENT AND PLAN: 1. Metastatic disease to the liver and lung, unknown primary. 2. Elevated CEA and elevated CA-125. 3. Gastric ulcer, benign appearing, awaiting biopsy results. 4. Aspiration pneumonia, following attempted a bowel preparation, this is a difficult situation. He r respiratory status has improved a bit, but she is still requiring significant oxygen supplementatio n. It looks like the bowel prep has continued to work. She is going to need colonoscopy at some poi nt to evaluate for a colonic primary for her metastatic disease. At this point, we will tentatively plan for colonoscopy tomorrow, pending assessment of her cardiorespiratory status in the morning. We will not give her any more GoLYTELY at this time. Dr. Irby is covering for GI this weekend.
[2018-04-07 15:42] LABS: Anion Gap 18 mmol/L (10-20); BUN (Urea Nitrogen) 21 mg/dL (9.8-20.1); Calc. Creatinine Clearance 53 mL/min (70-130); Calcium 7.3 mg/dL (7.8-10.44); Carbon Dioxide 21 mmol/L (23-31); Chloride 106 mmol/L (98-107); Estimated GFR-MDRD 34; Glucose 104 mg/dL (80-115); Magnesium 1.7 mg/dL (1.6-2.6); Potassium 3.2 mmol/L (3.5-5.1); Sodium 142 mmol/L (136-145)
[2018-04-07] MEDS ORDERED: Potassium Chloride 20 MEQ TAB PO SCH (15:45)
[2018-04-07] MEDS: traZODone HCl 50 MG TAB PO SCH (21:35)
[2018-04-08] MEDS: Piperacillin/Tazobactam 3.375 GM in Sodium Chloride 0.9% 100 ML IVPB SCH ×4 (03:57→20:56)
[2018-04-08 05:04] LABS: ALT (SGPT) 36 U/L (8-55); AST (SGOT) 113 U/L (5-34); Albumin 2.4 g/dL (3.4-4.8); Alkaline Phosphatase 264 U/L (40-150); Anion Gap 15 mmol/L (10-20); BUN (Urea Nitrogen) 19 mg/dL (9.8-20.1); Bilirubin, Total 1.9 mg/dL (0.2-1.2); Calc. Creatinine Clearance 54 mL/min (70-130); Calcium 7.5 mg/dL (7.8-10.44); Carbon Dioxide 23 mmol/L (23-31); Chloride 107 mmol/L (98-107); Estimated GFR-MDRD 34; Globulin 2.9 g/dL (2.4-3.5); Glucose 88 mg/dL (80-115); Potassium 3.3 mmol/L (3.5-5.1); Protein, Total 5.3 g/dL (6.0-8.3); Sodium 142 mmol/L (136-145)
[2018-04-08 05:14] LABS: Band 29 % (5-11); Hemoglobin 8.9 g/dL (12.0-16.0); Lymphocytes 2 % (21-51); MDiff Complete? YES; Mean Corpuscular HGB CONC 33.4 g/dL (32.0-36.0); Mean Corpuscular Hemoglobin 26.7 pg (27.0-31.0); Mean Corpuscular Volume 80.1 fL (78.0-98.0); Mean Platelet Volume 9.2 fL (7.4-10.4); Monocytes 7 % (0-10); Neutrophil 62 % (42-75); Platelet Count 176 thou/uL (130-400); RBC Distribution Width 17.6 % (11.5-14.5); Red Blood Cell (RBC) Count 3.32 mill/uL (4.20-5.40); White Blood Cell (WBC) Count 22.5 thou/uL (4.8-10.8)
[2018-04-08] MEDS ORDERED: Acetaminophen 325 MG TAB PO PRN (05:19)
--- NOTE | 2018-04-08 05:19 | PDOC.FM ---
- Subjective Subjective: Ms. Guzman is on 5L NC satting well. Denies difficulty breathing. She is tired and weak and says she wants water. Her son lives in town and visits her often. - Objective MAR Reviewed: Yes Vital Signs & Weight: Vital Signs (12 hours) Temp Pulse Resp Pulse Ox 04/08/18 05:07 97 04/07/18 20:00 98.1 F 93 24 H 95 04/07/18 19:54 93 L Weight Admit Weight 88.224 kg Weight 91.654 kg Most Recent Monitor Data Heart Rate from ECG 87 NIBP 124/66 NIBP BP-Mean 103 Respiration from ECG 20 SpO2 92 I&O: 04/06/18 04/07/18 04/08/18 06:59 06:59 06:59 Intake Total 1420 1680 1475 Output Total 300 1025 700 Balance 1120 655 775 Result Diagrams: 04/08/18 04:00 04/08/18 04:00 <Lavern Madden - Last Filed: 04/08/18 13:24> - Objective Vital Signs & Weight: Vital Signs (12 hours) Temp Pulse Pulse Pulse Resp BP BP 04/08/18 19:40 98.4 F 91 19 04/08/18 11:14 97.4 F L 91 20 04/08/18 08:41 98 93 132/77 121/72 BP Pulse Ox Pulse Ox Pulse Ox 04/08/18 19:40 141/75 H 97 04/08/18 11:14 127/88 96 04/08/18 08:41 93 L 95 Weight Admit Weight 88.224 kg Weight 92.986 kg Most Recent Monitor Data Heart Rate from ECG 87 NIBP 124/66 NIBP BP-Mean 103 Respiration from ECG 20 SpO2 92 I&O: 04/07/18 04/08/18 04/09/18 06:59 06:59 06:59 Intake Total 1680 2125 1420 Output Total 1025 1200 350 Balance 158 241 7227 Result Diagrams: 04/08/18 04:00 04/08/18 04:00 <Kathi Coronel - Last Filed: 04/08/18 20:21> Phys Exam - Physical Examination Constitutional: NAD (on 5L NC) Respiratory: no wheezing, no rales, no rhonchi decreased breath sounds in lower lobes Cardiovascular: RRR, no significant murmur Gastrointestinal: soft, non-tender, no distention, positive bowel sounds Musculoskeletal: edema present (2+ pitting edema b/l LE) Neurological: non-focal, moves all 4 limbs Psychiatric: normal affect Skin: cap refill <2 seconds <Lavern Madden - Last Filed: 04/08/18 13:24> Dx/Plan (1) Elevated LFTs Code(s): R94.5 - ABNORMAL RESULTS OF LIVER FUNCTION STUDIES Status: Acute (2) Hypovolemia associated with vomiting Code(s): E86.1 - HYPOVOLEMIA Status: Acute (3) Metastatic disease Code(s): C79.9 - SECONDARY MALIGNANT NEOPLASM OF UNSPECIFIED SITE Status: Acute (4) Sepsis Code(s): A41.9 - SEPSIS, UNSPECIFIED ORGANISM Status: Acute (5) Depression Code(s): F32.9 - MAJOR DEPRESSIVE DISORDER, SINGLE EPISODE, UNSPECIFIED Status : Chronic (6) Hypertension Code(s): I10 - ESSENTIAL (PRIMARY) HYPERTENSION Status: Chronic (7) Hypothyroidism Code(s): E03.9 - HYPOTHYROIDISM, UNSPECIFIED Status: Chronic (8) Normocytic anemia Code(s): D64.9 - ANEMIA, UNSPECIFIED Status: Chronic (9) Osteoporosis Code(s): M81.0 - AGE-RELATED OSTEOPOROSIS W/O CURRENT PATHOLOGICAL FRACTURE Status: Chronic (10) Hyponatremia Code(s): E87.1 - HYPO-OSMOLALITY AND HYPONATREMIA Status: Resolved (11) Acute respiratory failure with hypoxia and hypercapnia Code(s): J96.01 - ACUTE RESPIRATORY FAILURE WITH HYPOXIA; J96.02 - ACUTE RESPIRATORY FAILURE WITH HYPERCAPNIA Status: Acute (12) Hypokalemia Code(s): E87.6 - HYPOKALEMIA Status: Acute - Plan Plan: Metastatic disease findings on liver and lung, unknown primary source - Found initially on CT ab/pelvis. Will continue workup to identify primary source - Consulted Dr. Holden [place]. Plan for repeat colonoscopy possibly today. Bowel prep has been more effective. Appreciate further recommendations. - EGD performed 04/06, gastric ulcer was biopsied. Colonoscopy unable to be completed d/t hard stool - Patient denied transvaginal ultrasound, abdominal U/S did not visualize uterus or adnexa - CT chest showed multiple small pulmonary nodules, likely metastatic, largest one 9mm. R lateral 5th rib fx w/lytic focus - CEA 1195, CA-125 1248 - Oncology consult pending primary source - on clear liquids, IVF were discontinued yesterday Acute hypoxic respiratory failure - Chest CTA neg for PE. showed possible aspiration pneumonia, small R pleural effusion, spine mets, R hemidiaphragm eventration - on bipap with FiO2 40% - Pulmonology, Dr. Hartman, consulted, appreciate recommendations. - Continue Zosyn (04/06) - Echo: EF >60-65%, mod enlarged RV, LA mod-severely dilated, mild-mod tricuspid regurg Gastric Ulcer - 3-4mm found on EGD, did not appear to be malignant - biopsy pending - avoid NSAIDS and continue protonix Hypokalemia - 3.1 -> 2.5->3.3 - will replace DAY, stable - Cr 1.36-> 1.59->1.52 today - likely 2/2 contrast received and hypovolemia component as well - will avoid nephrotoxic medications - monitor I/Os Leukocytosis, downtrending - WBC 31 on admission - 24->27.3->32->22 - continue IV abx Cholecystisis possible - RUQ US showed gallbladder filled with echogenic stones, sludge, thickened meléndez, positive Rice's sign. Metastatic lesions on liver. Possible cause for initial hospital presentation - Has need for HIDA scan but this will be postponed until more necessary workup is completed Sepsis 2/2 likely GI pathology on initial presentation -Presented with N/V/D, tachycardia, leukocytosis, and lactic acidosis suggestive of sepsis. Less likely to be of bacteremic origin -Originally on Vancomycin (04/01) and Zosyn, discontinued 04/04. -FOBT negative. Stool studies not completed d/t formed stools. -UA neg -blood and urine cultures, no growth Normocytic anemia, stable -Ferritin 2594, iron studies suggest anemia of chronic disease -Continue to monitor. Elevated LFTs and total bilirubin likely secondary to metastatic disease -Work up per above. Continue to trend. Weakness - consult PT HTN - Held home medications today Chronic Low Back Pain - after "breaking back" 6 years ago - IV morphine prn Constipation - Bowel regimen, golitely for colonoscopy prep Hypothyroidism - on synthroid -TSH 5.3, Free T4 wnl at .95, Free T3 low <1 Depression -Continue home medications Osteoporosis -Continue home medications Previous Tobacco Use - quit 6 years ago, 8 pack year hx Mild hyponatremia, resolved PPx: Lovenox for VTE prophylaxis, Protonix for GI prophylaxis. CODE STATUS: Full code Dispo: pending workup <Lavern Madden - Last Filed: 04/08/18 13:24> Attending Addendum - Attending Addendum Date/Time: 04/08/182017 I personally evaluated the patient at 1125 am and discussed the management with Dr. Madden. I agree with the History, Examination, Assessment and Plan documented above with any addition or exceptions noted below. Aspiration PNA with acute hypoxic respiratory failure- on Zosyn and requiring 5L NC. Metastatic disease without primary source identified- appreciate GI recs Patient interested in change in code status- I recommended that she discuss with her family to ensure they are aware of her wishes and we will change to whatever she requests. <Kathi Coronel - Last Filed: 04/08/18 20:21>
[2018-04-08] MEDS: Levothyroxine Sodium 125 MCG TAB PO SCH (06:05)
[2018-04-08] MEDS: hydrOXYzine 25 MG TAB PO PRN ×2 (06:05→20:56)
[2018-04-08] MEDS: PARoxetine 20 MG TAB PO SCH (07:58)
[2018-04-08] MEDS: Enoxaparin Sodium 40 MG/0.4 ML SYRINGE SC SCH ×2 (07:58→08:12)
[2018-04-08] MEDS: Bupropion 150 MG XL TAB PO SCH (07:59)
[2018-04-08] MEDS: Folic Acid 1 MG TAB PO SCH (07:59)
[2018-04-08] MEDS: Calcium Carbonate + Vit D 1 TAB PO SCH ×2 (08:13→20:56)
[2018-04-08] MEDS: Senokot 8.6 MG TAB PO SCH ×2 (08:28→20:56)
--- NOTE | 2018-04-08 09:19 | RAD ---
AP VIEW CHEST: Date: 04/08/18 COMPARISON: Prior exam dated 04/07/18. IMPRESSION: Prominent cardiomegaly is stable. The focal diaphragmatic eventration involving the right hemithorax is stable. Patient is heavily rotated, limiting exam. No definite consolidation or pneumothorax is ev ident. POS: [facility]
[2018-04-08] MEDS ORDERED: PROPOFOL 200 MG/20 ML VIAL ONE (15:07)
[2018-04-08] MEDS ORDERED: Promethazine HCl 25 MG/ML VIAL SLOW IVP PRN (16:29)
[2018-04-08] MEDS ORDERED: Promethazine HCl 25 MG/ML VIAL IM PRN (16:29)
[2018-04-08] MEDS ORDERED: Ondansetron HCl/PF 4 MG/2 ML Vial IVP PRN (16:29)
--- NOTE | 2018-04-08 18:31 | OP ---
PREOPERATIVE DIAGNOSIS: Metastatic disease to the liver. PROCEDURE: After informed consent was obtained, the patient was placed in the left lateral decubitus position. Anesthesia administered per the Anesthesia Department. Forward-viewing endoscope was ins erted into the rectum after perianal inspection and rectal exam are normal. Large amount of solid st ool was throughout the colon. The scope was passed to the hepatic flexure, but could not be passed _ ____ secondary to large amount of stool. The transverse, descending, sigmoid, and rectum were normal . Retroflexion in rectum was normal. No masses were seen. ASSESSMENT: Normal incomplete poorly prepped colonoscopy. RECOMMENDATIONS: CT-guided liver biopsy.
--- NOTE | 2018-04-08 19:45 | PDOC.EVN ---
Event Note - Event Note Event Note: Discussed code status with patient at beside. She is s/p colonscopy. Patient was alert, awake, oriented. Discussed DNI vs. DNR and all resuscitative measures entailed with each one. Answered all questions. Ultimately, patient expressed not wanting to be intubated but does desire all other resuscitative measures including chest compressions, lines, medications, shock. She decided code status: DNI.
[2018-04-08] MEDS: traZODone HCl 50 MG TAB PO SCH (20:56)
--- NOTE | 2018-04-08 21:43 | PRG ---
DATE OF SERVICE: 04/08/2018 SUBJECTIVE: She says she is feeling better. OBJECTIVE: VITAL SIGNS: She is afebrile, heart rate is 91, respiratory rate is 19, oximetry is 97 on 4 liters, blood pressure 141/75. LUNGS: Clear. HEART: Regular rate and rhythm. S1 and S2 are normal. ABDOMEN: Soft. It is a note from today, the patient has a DNI. It has been my experience had not intubating somebody that is coded as futile situation, so I am not really sure of the reasons behind this. Dr. Irby did colonoscopy today, which was a poor prep colonoscopy, no obvious lesions were identified . He is recommended a liver biopsy. IMPRESSION: 1. Pneumonia, likely aspiration-mediated. 2. Multiple liver lesions suggestive of metastatic disease. A biopsy has been recommended. PLAN: Continue supportive care.
[2018-04-08] MEDS: Melatonin 3 MG TAB PO PRN (22:18)
[2018-04-09] MEDS: Piperacillin/Tazobactam 3.375 GM in Sodium Chloride 0.9% 100 ML IVPB SCH ×4 (03:36→21:01)
[2018-04-09 04:47] LABS: ALT (SGPT) 36 U/L (8-55); AST (SGOT) 95 U/L (5-34); Albumin 2.4 g/dL (3.4-4.8); Alkaline Phosphatase 239 U/L (40-150); Anion Gap 18 mmol/L (10-20); BUN (Urea Nitrogen) 19 mg/dL (9.8-20.1); Bilirubin, Total 2.3 mg/dL (0.2-1.2); Calc. Creatinine Clearance 55 mL/min (70-130); Carbon Dioxide 20 mmol/L (23-31); Chloride 108 mmol/L (98-107); Estimated GFR-MDRD 34; Glucose 101 mg/dL (80-115); Potassium 3.5 mmol/L (3.5-5.1); Protein, Total 5.4 g/dL (6.0-8.3); Sodium 142 mmol/L (136-145)
[2018-04-09 04:51] LABS: Band 4 % (5-11); Hemoglobin 9.2 g/dL (12.0-16.0); Lymphocytes 7 % (21-51); MDiff Complete? YES; Mean Corpuscular HGB CONC 32.3 g/dL (32.0-36.0); Mean Corpuscular Hemoglobin 26.7 pg (27.0-31.0); Mean Corpuscular Volume 82.5 fL (78.0-98.0); Mean Platelet Volume 9.3 fL (7.4-10.4); Monocytes 8 % (0-10); Neutrophil 81 % (42-75); Platelet Count 146 thou/uL (130-400); RBC Distribution Width 18.9 % (11.5-14.5); Red Blood Cell (RBC) Count 3.45 mill/uL (4.20-5.40); White Blood Cell (WBC) Count 24.4 thou/uL (4.8-10.8)
--- NOTE | 2018-04-09 05:20 | PDOC.FM ---
- Subjective Subjective: Ms. Guzman says she still does not feel good, but she is doing a little better than yesterday. Denies difficulty breathing or SOB. She is awaiting her liver biopsy. States she is scared of a bad prognosis. She says she has discussed this with her son who visits her nearly daily. Requesting more ice chips. - Objective MAR Reviewed: Yes Vital Signs & Weight: Vital Signs (12 hours) Temp Pulse Resp BP BP Pulse Ox 04/09/18 04:09 95 04/09/18 03:36 97.8 F 85 18 110/69 95 04/08/18 23:31 98.6 F 93 18 137/69 96 04/08/18 19:40 98.4 F 91 19 141/75 H 97 04/08/18 19:30 98.4 F 91 19 97 Weight Admit Weight 88.224 kg Weight 92.986 kg Most Recent Monitor Data Heart Rate from ECG 87 NIBP 124/66 NIBP BP-Mean 103 Respiration from ECG 20 SpO2 92 I&O: 04/07/18 04/08/18 04/09/18 06:59 06:59 06:59 Intake Total 1680 2125 1420 Output Total 1025 1200 350 Balance 969 666 2134 Result Diagrams: 04/09/18 04:00 04/09/18 04:00 <Lavern Madden - Last Filed: 04/09/18 07:26> - Objective Vital Signs & Weight: Vital Signs (12 hours) Temp Pulse Resp BP BP Pulse Ox 04/09/18 11:25 97.4 F L 100 16 131/82 97 04/09/18 08:00 97.6 F 88 12 97 04/09/18 07:29 97.6 F 88 12 110/64 97 04/09/18 06:08 97 04/09/18 06:07 89 16 04/09/18 04:09 95 04/09/18 03:36 97.8 F 85 18 110/69 95 Weight Admit Weight 88.224 kg Weight 92.986 kg Most Recent Monitor Data Heart Rate from ECG 87 NIBP 124/66 NIBP BP-Mean 103 Respiration from ECG 20 SpO2 92 I&O: 04/08/18 04/09/18 04/10/18 06:59 06:59 06:59 Intake Total 2125 1940 Output Total 1200 825 Balance 925 1115 Result Diagrams: 04/09/18 04:00 04/09/18 04:00 <Kathi Coronel - Last Filed: 04/09/18 12:29> Phys Exam - Physical Examination Constitutional: NAD Respiratory: clear to auscultation bilateral Cardiovascular: RRR, no significant murmur Gastrointestinal: soft, non-tender, no distention hypoactive bowel sounds Musculoskeletal: edema present (2+ pitting edema b/l LE) Neurological: non-focal, moves all 4 limbs Psychiatric: normal affect Skin: cap refill <2 seconds <Lavern Madden - Last Filed: 04/09/18 07:26> Dx/Plan (1) Elevated LFTs Code(s): R94.5 - ABNORMAL RESULTS OF LIVER FUNCTION STUDIES Status: Acute (2) Hypovolemia associated with vomiting Code(s): E86.1 - HYPOVOLEMIA Status: Acute (3) Metastatic disease Code(s): C79.9 - SECONDARY MALIGNANT NEOPLASM OF UNSPECIFIED SITE Status: Acute (4) Sepsis Code(s): A41.9 - SEPSIS, UNSPECIFIED ORGANISM Status: Acute (5) Depression Code(s): F32.9 - MAJOR DEPRESSIVE DISORDER, SINGLE EPISODE, UNSPECIFIED Status : Chronic (6) Hypertension Code(s): I10 - ESSENTIAL (PRIMARY) HYPERTENSION Status: Chronic (7) Hypothyroidism Code(s): E03.9 - HYPOTHYROIDISM, UNSPECIFIED Status: Chronic (8) Normocytic anemia Code(s): D64.9 - ANEMIA, UNSPECIFIED Status: Chronic (9) Osteoporosis Code(s): M81.0 - AGE-RELATED OSTEOPOROSIS W/O CURRENT PATHOLOGICAL FRACTURE Status: Chronic (10) Hyponatremia Code(s): E87.1 - HYPO-OSMOLALITY AND HYPONATREMIA Status: Resolved (11) Acute respiratory failure with hypoxia and hypercapnia Code(s): J96.01 - ACUTE RESPIRATORY FAILURE WITH HYPOXIA; J96.02 - ACUTE RESPIRATORY FAILURE WITH HYPERCAPNIA Status: Acute (12) Hypokalemia Code(s): E87.6 - HYPOKALEMIA Status: Acute - Plan Plan: Metastatic disease findings on liver and lung, unknown primary source - Found initially on CT ab/pelvis. Will continue workup to identify primary source - Patient denied transvaginal ultrasound, abdominal U/S did not visualize uterus or adnexa - CT chest showed multiple small pulmonary nodules, likely metastatic, largest one 9mm. R lateral 5th rib fx w/lytic focus - CEA 1195, CA-125 1248 - EGD performed 04/06, gastric ulcer. Colonoscopy unable to be completed d/t hard stool. Repeat colonoscopy performed 04/08 to hepatic flexure, no mass seen. - Consulted GI, Dr. Hatch. Appreciate further recommendations. - Liver biopsy planned for today. Has been NPO, added maintenance IVF. - Oncology consult pending primary source Acute hypoxic respiratory failure 2/2 likely aspiration pneumonia - Chest CTA neg for PE. showed possible aspiration pneumonia, small R pleural effusion, spine mets, R hemidiaphragm eventration - on 4L NC now - incentive spirometry - Pulmonology, Dr. Hartman, consulted, appreciate recommendations. - Continue Zosyn (04/06) - Echo: EF >60-65%, mod enlarged RV, LA mod-severely dilated, mild-mod tricuspid regurg Gastric Ulcer - 3-4mm found on EGD, did not appear to be malignant - biopsy showed reactive gastropathy, H pylori neg - avoid NSAIDS and continue protonix DAY, stable - Cr 1.36-> 1.59->1.5 - likely 2/2 contrast received and hypovolemia component as well - will avoid nephrotoxic medications - monitor I/Os, urine output good last 24 hrs Leukocytosis, improving - WBC 31 on admission - continue IV abx Cholecystisis possible - RUQ US showed gallbladder filled with echogenic stones, sludge, thickened meléndez, positive Rice's sign. Metastatic lesions on liver. Possible cause for initial hospital presentation - Has need for HIDA scan but this will be postponed until more necessary workup is completed Sepsis 2/2 likely GI pathology on initial presentation, resolved -Presented with N/V/D, tachycardia, leukocytosis, and lactic acidosis suggestive of sepsis. Less likely to be of bacteremic origin -Originally on Vancomycin (04/01) and Zosyn, discontinued 04/04. -FOBT negative. Stool studies not completed d/t formed stools. -UA neg -blood and urine cultures, no growth Normocytic anemia, stable -Ferritin 2594, iron studies suggest anemia of chronic disease -Continue to monitor. Hypokalemia, resolved - 3.1 -> 2.5->3.3-> 3.5 Elevated LFTs and total bilirubin likely secondary to metastatic disease -Work up per above Weakness - consult PT HTN - Held home medications today Chronic Low Back Pain - after "breaking back" 6 years ago - IV morphine prn Constipation - Bowel regimen Hypothyroidism - on synthroid -TSH 5.3, Free T4 wnl at .95, Free T3 low <1 Depression -Continue home medications Osteoporosis -Continue home medications Previous Tobacco Use - quit 6 years ago, 8 pack year hx Mild hyponatremia, resolved PPx: Lovenox for VTE prophylaxis, Protonix for GI prophylaxis. CODE STATUS: DNI Dispo: pending workup <Lavern Madden - Last Filed: 04/09/18 07:26> Attending Addendum - Attending Addendum Date/Time: 04/09/18 1228 I personally evaluated the patient at 1030 and discussed the management with Dr. Madden I agree with the History, Examination, Assessment and Plan documented above with any addition or exceptions noted below. Aspiration PNA- on Zosyn. Respiratory status is stable at this time. Metastatic liver lesion- awaiting liver biopsy for diagnosis of primary transfer to medical floor and advance diet as tolerated with speech recs. <Kathi Coronel - Last Filed: 04/09/18 12:29>
[2018-04-09] MEDS: Levothyroxine Sodium 125 MCG TAB PO SCH (05:28)
[2018-04-09] MEDS ORDERED: Alendronate Sodium 70 mg Tablet PO SCH (06:00)
[2018-04-09] MEDS: Sodium Chloride 0.9% 1,000 ML IV SCH ×2 (08:36→19:12)
[2018-04-09] MEDS: PARoxetine 20 MG TAB PO SCH (08:39)
[2018-04-09] MEDS: Senokot 8.6 MG TAB PO SCH ×2 (08:39→21:01)
[2018-04-09] MEDS: Bupropion 150 MG XL TAB PO SCH (08:40)
[2018-04-09] MEDS: Folic Acid 1 MG TAB PO SCH (08:40)
[2018-04-09] MEDS: Calcium Carbonate + Vit D 1 TAB PO SCH ×2 (08:40→21:01)
--- NOTE | 2018-04-09 09:44 | RAD ---
AP VIEW CHEST: Date: 04/09/18 INDICATION: History of pneumonia. COMPARISON: Prior exam dated 04/08/18. FINDINGS: There is persistent cardiomegaly. There is stable focal eventration on either side. There is worsenin g perihilar air space opacities which may reflect edema or pneumonia. There are tiny bilateral pleura l effusions. No pneumothorax is evident. IMPRESSION: Worsening central edema pattern and bilateral pleural effusions may reflect worsening volume overload or CHF. Pneumonia is not excluded. POS: [facility]
--- NOTE | 2018-04-09 13:43 | PRG ---
DATE OF SERVICE: 04/09/2018 SUBJECTIVE: The patient is doing well. She is having no abdominal pain and the results of her colon oscopy were discussed. OBJECTIVE: VITAL SIGNS: Temperature 97.4, pulse 100, respiratory rate 16, blood pressure 131/82. CHEST: Clear. CARDIOVASCULAR: Regular rate and rhythm. ABDOMEN: Soft and nontender without organomegaly or masses. LABORATORY DATA: Shows white blood cell count 24.4, hemoglobin 9.2, hematocrit 28.4. Chemistries es sentially show CO2 20, creatinine 1.52, total bilirubin 2.3, AST 95, alkaline phosphatase 239, albumi n 2.4. ASSESSMENT: 1. Metastatic liver disease. 2. Gastric ulcer. 3. Aspiration pneumonia. RECOMMENDATIONS: CT guided liver biopsy - Radiology informs me that they will not be able to do this until Tuesday.
[2018-04-09] MEDS: traZODone HCl 50 MG TAB PO SCH (21:02)
[2018-04-09] MEDS: Melatonin 3 MG TAB PO PRN (22:42)
[2018-04-09] MEDS: hydrOXYzine 25 MG TAB PO PRN (22:42)
--- NOTE | 2018-04-10 00:43 | PRG ---
DATE OF SERVICE: 04/09/2018 SUBJECTIVE: Maureen Guzman has no new complaints. She denies shortness of breath. OBJECTIVE: VITAL SIGNS: She is afebrile, heart rate is 97, respiratory rate is in the 20s, oximetry is 95, bloo d pressure 147/78. LUNGS: Remarkable for fine crackles at both lung bases. HEART: Regular rhythm. No S3. ABDOMEN: Soft and nontender. EXTREMITIES: Without clubbing, cyanosis, or edema. LABORATORY DATA: White count 24.4, hemoglobin 9.2, platelets 146. Sodium 142, potassium 3.5, chlori de 108, bicarbonate 20, BUN 19, creatinine 1.52. IMPRESSION: 1. Pneumonia, possibly aspiration mediated. 2. Liver lesions suspicious for metastatic disease. PLAN: We are awaiting a biopsy. Unfortunately, biopsy be done until Tuesday. She is medicall y stable to move out of the intermediate care unit.
[2018-04-10] MEDS: Piperacillin/Tazobactam 3.375 GM in Sodium Chloride 0.9% 100 ML IVPB SCH ×4 (03:13→21:04)
--- NOTE | 2018-04-10 04:11 | PDOC.EVN ---
Event Note - Event Note Event Note: Attending Note: Residents called me to to evaluate patient. She has had mild tachycardia for several hours and increased respiratory effort. She had neb 30 min ago with some relief and decreased resp rate. She has Wells score 7. But we have grave concern for Renal injury with CTA. On my exam she is pleasant and conversant. AxO x3. Has bilat diffuse expiratory wheeze with accessory muscle use. Does not appear tachypneic. She is high risk for PE, was recently diagnosed with aspiration pneumonia, and has bronchitis or COPD exacerbation. We will initiate therapeutic heparin, and aggressively treat acute bronchitis ( vs possible COPD exacerbation, but COPD not previously diagnosed) with steroids and nebs. This allow time to give additional IV fluid and take renal protective measures should CTA become absolutely necessary but we hope that with mentioned therapy she will improve without need for CTA.
[2018-04-10] MEDS ORDERED: Lactated Ringer's 1,000 ML IV SCH (04:15)
[2018-04-10] MEDS ORDERED: predniSONE 20 MG TAB PO SCH (04:30)
[2018-04-10] MEDS ORDERED: Sodium Chloride 0.9% 1,000 ML IV SCH (04:30)
[2018-04-10] MEDS ORDERED: Heparin 25,000 units/D5W 500 ML IVPB SCH (04:30)
[2018-04-10] MEDS ORDERED: Heparin 5,000 UNITS/ML VIAL SLOW IVP SCH (04:45)
[2018-04-10 05:10] LABS: INR-International Normal Ratio 1.6; PTT 30.2 SEC (22.9-36.1); Prothrombin Time 18.8 SEC (12.0-14.7)
[2018-04-10 05:19] LABS: ALT (SGPT) 33 U/L (8-55); AST (SGOT) 94 U/L (5-34); Albumin 2.5 g/dL (3.4-4.8); Alkaline Phosphatase 250 U/L (40-150); Anion Gap 19 mmol/L (10-20); BUN (Urea Nitrogen) 20 mg/dL (9.8-20.1); Calc. Creatinine Clearance 53 mL/min (70-130); Calcium 8.6 mg/dL (7.8-10.44); Carbon Dioxide 19 mmol/L (23-31); Chloride 108 mmol/L (98-107); Estimated GFR-MDRD 33; Globulin 3.2 g/dL (2.4-3.5); Glucose 90 mg/dL (80-115); Protein, Total 5.7 g/dL (6.0-8.3); Sodium 142 mmol/L (136-145)
--- NOTE | 2018-04-10 05:32 | PDOC.FM ---
- Subjective Subjective: Ms. Guzman upon first assessment at 0600 had no respiratory complaints. An hour later, we were paged due to patient's complaints of "shallow breathing" and tiredness. She denied anxiety at that time. No increased oxygen requirements since yesterday. Later in the morning, patient complaint of a cough and nurse reported that patient said she was scared and "going to ". - Objective MAR Reviewed: Yes Vital Signs & Weight: Vital Signs (12 hours) Temp Pulse Resp BP Pulse Ox 04/10/18 02:28 111 H 24 H 04/10/18 00:59 98.2 F 103 H 22 H 112/70 90 L 04/09/18 22:00 22 H 04/09/18 21:41 98.4 F 102 H 132/84 91 L 04/09/18 20:00 98.4 F 102 H 22 H 92 L Weight Admit Weight 88.224 kg Weight 92.986 kg Most Recent Monitor Data Heart Rate from ECG 87 NIBP 124/66 NIBP BP-Mean 103 Respiration from ECG 20 SpO2 92 I&O: 04/08/18 04/09/18 04/10/18 06:59 06:59 06:59 Intake Total 2125 1940 370 Output Total 1200 825 Balance 925 1115 370 Result Diagrams: 04/10/18 04:27 04/10/18 04:27 <Lavern Madden - Last Filed: 04/10/18 15:01> - Objective Vital Signs & Weight: Vital Signs (12 hours) Temp Pulse Resp BP BP Pulse Ox 04/10/18 13:45 104 H 28 H 97 04/10/18 10:25 102 H 24 H 98 04/10/18 07:45 98.5 F 99 22 H 114/66 100 04/10/18 07:10 98.5 F 99 22 H 99 04/10/18 06:33 102 H 20 97 04/10/18 06:18 98.7 F 102 H 17 111/82 96 Weight Admit Weight 88.224 kg Weight 92.986 kg Most Recent Monitor Data Heart Rate from ECG 87 NIBP 124/66 NIBP BP-Mean 103 Respiration from ECG 20 SpO2 92 I&O: 04/09/18 04/10/18 04/11/18 06:59 06:59 06:59 Intake Total 1940 995 Output Total 825 675 Balance 1115 320 Result Diagrams: 04/10/18 04:27 04/10/18 04:27 <Huyen Cartwright - Last Filed: 04/10/18 16:12> Phys Exam - Physical Examination weak, tired HEENT: moist MMs Respiratory: clear to auscultation bilateral no increased work of breathing Cardiovascular: RRR, no significant murmur Gastrointestinal: soft, non-tender, no distention, positive bowel sounds Musculoskeletal: edema present (2+ b/l LE edema) Neurological: non-focal, moves all 4 limbs Psychiatric: A&O x 3 Skin: cap refill <2 seconds <Lavern Madden - Last Filed: 04/10/18 15:01> Dx/Plan (1) Elevated LFTs Code(s): R94.5 - ABNORMAL RESULTS OF LIVER FUNCTION STUDIES Status: Acute (2) Hypovolemia associated with vomiting Code(s): E86.1 - HYPOVOLEMIA Status: Acute (3) Metastatic disease Code(s): C79.9 - SECONDARY MALIGNANT NEOPLASM OF UNSPECIFIED SITE Status: Acute (4) Sepsis Code(s): A41.9 - SEPSIS, UNSPECIFIED ORGANISM Status: Acute (5) Depression Code(s): F32.9 - MAJOR DEPRESSIVE DISORDER, SINGLE EPISODE, UNSPECIFIED Status : Chronic (6) Hypertension Code(s): I10 - ESSENTIAL (PRIMARY) HYPERTENSION Status: Chronic (7) Hypothyroidism Code(s): E03.9 - HYPOTHYROIDISM, UNSPECIFIED Status: Chronic (8) Normocytic anemia Code(s): D64.9 - ANEMIA, UNSPECIFIED Status: Chronic (9) Osteoporosis Code(s): M81.0 - AGE-RELATED OSTEOPOROSIS W/O CURRENT PATHOLOGICAL FRACTURE Status: Chronic (10) Hyponatremia Code(s): E87.1 - HYPO-OSMOLALITY AND HYPONATREMIA Status: Resolved (11) Acute respiratory failure with hypoxia and hypercapnia Code(s): J96.01 - ACUTE RESPIRATORY FAILURE WITH HYPOXIA; J96.02 - ACUTE RESPIRATORY FAILURE WITH HYPERCAPNIA Status: Acute (12) Hypokalemia Code(s): E87.6 - HYPOKALEMIA Status: Acute - Plan Plan: Metastatic disease findings on liver and lung, unknown primary source - Found initially on CT ab/pelvis. Will continue workup to identify primary source - Patient denied transvaginal ultrasound, abdominal U/S did not visualize uterus or adnexa - CT chest showed multiple small pulmonary nodules, likely metastatic, largest one 9mm. R lateral 5th rib fx w/lytic focus - CEA 1195, CA-125 1248 - EGD performed 04/06, gastric ulcer. Colonoscopy unable to be completed d/t hard stool. Repeat colonoscopy performed 04/08 to hepatic flexure, no mass seen. - Consulted GI, Dr. Hatch. Appreciate further recommendations. - Liver biopsy planned for tomorrow. - Oncology consult pending primary source Acute hypoxic respiratory failure 2/2 likely aspiration pneumonia - Chest CTA neg for PE. showed possible aspiration pneumonia, small R pleural effusion, spine mets, R hemidiaphragm eventration - on 4L NC now - incentive spirometry - Pulmonology consulted, appreciate recommendations. - Continue Zosyn (04/06) - Overnight patient was started on IV heparin due to concern for PE - CXR repeated - One time lasix dose today Gastric Ulcer - 3-4mm found on EGD, did not appear to be malignant - biopsy showed reactive gastropathy, H pylori neg - avoid NSAIDS and continue protonix DAY, stable - Cr 1.36-> 1.59->1.5 - likely 2/2 contrast received and hypovolemia component as well - will avoid nephrotoxic medications - monitor I/Os, urine output good last 24 hrs Anxiety - ativan prn Leukocytosis, improving - WBC 31 on admission - continue IV abx Cholecystisis possible - RUQ US showed gallbladder filled with echogenic stones, sludge, thickened meléndez, positive Rice's sign. Metastatic lesions on liver. Possible cause for initial hospital presentation - Has need for HIDA scan but this will be postponed until more necessary workup is completed Sepsis 2/2 likely GI pathology on initial presentation, resolved -Presented with N/V/D, tachycardia, leukocytosis, and lactic acidosis suggestive of sepsis. Less likely to be of bacteremic origin -Originally on Vancomycin (04/01) and Zosyn, discontinued 04/04. -FOBT negative. Stool studies not completed d/t formed stools. -UA neg -blood and urine cultures, no growth Normocytic anemia, stable -Ferritin 2594, iron studies suggest anemia of chronic disease -Continue to monitor. Hypokalemia, resolved - 3.1 -> 2.5->3.3-> 3.5 Elevated LFTs and total bilirubin likely secondary to metastatic disease -Work up per above Weakness - consult PT HTN - Held home medications today Chronic Low Back Pain - after "breaking back" 6 years ago - IV morphine prn Constipation - Bowel regimen Hypothyroidism - on synthroid -TSH 5.3, Free T4 wnl at .95, Free T3 low <1 Depression -Continue home medications Osteoporosis -Continue home medications Previous Tobacco Use - quit 6 years ago, 8 pack year hx Mild hyponatremia, resolved PPx: Lovenox for VTE prophylaxis, Protonix for GI prophylaxis. CODE STATUS: DNI Dispo: pending workup <Lavern Madden - Last Filed: 04/10/18 15:01> Attending Addendum - Attending Addendum Date/Time: 04/10/18 1610 I personally evaluated the patient and discussed the management with Dr. Madden. I agree with the History, Examination, Assessment and Plan documented above with any addition or exceptions noted below. The patient is due to have CT guided liver biopsy tomorrow. Overnight she had multiple episodes of shortness of breath. A heparin drip was started overnight as there was concern that pt may have developed PE's. Pt has had multiple studies with contrast during this hospitalization. Will check lower extremity dopplers as she does have edema. Will also give dose of lasix. Pt is on antibiotics for presumed aspiration pneumonia. All of this can contribute to her shortness of breath as well as some under-lying anxiety. Will also try ativan to help with anxiety. Getting repeat chest xr. Trying mucinex as well for congestion. <Huyen Cartwright - Last Filed: 04/10/18 16:12>
[2018-04-10] MEDS: Levothyroxine Sodium 125 MCG TAB PO SCH (05:47)
[2018-04-10 06:59] LABS: Band 20 % (5-11); Hemoglobin 9.8 g/dL (12.0-16.0); Lymphocytes 5 % (21-51); MDiff Complete? YES; Mean Corpuscular HGB CONC 31.7 g/dL (32.0-36.0); Mean Corpuscular Hemoglobin 26.5 pg (27.0-31.0); Mean Corpuscular Volume 83.8 fL (78.0-98.0); Mean Platelet Volume 10.5 fL (7.4-10.4); Monocytes 6 % (0-10); Neutrophil 69 % (42-75); Platelet Count 124 thou/uL (130-400); RBC Distribution Width 19.7 % (11.5-14.5); White Blood Cell (WBC) Count 25.1 thou/uL (4.8-10.8)
[2018-04-10 07:48] LABS: Actual Bicarbonate (HCO3a) 25.1 mEq/L (22-28); Base Excess (BEa) -0.8 mEq/L (-2.0 to +3.0); CO2 Tension 47.2 mmHg (35.0-45.0); O2 Tension (PaO2) 75.8 mmHg (> 80.0); pH, Arterial 7.34 (7.35-7.45)
[2018-04-10 07:49] LABS: Calcium, Ionized 1.15 mmol/L (1.12-1.30); Carboxyhemoglobin (COHb) 1.2 gm% (0.0-3.0); Hemoglobin (Hb) 10.1 g/dL (12.0-16.0); Potassium - ABG Lab 3.6 mmol/L (3.70-5.30); Puncture Site RRA
[2018-04-10] MEDS: PARoxetine 20 MG TAB PO SCH (08:56)
[2018-04-10] MEDS: Senokot 8.6 MG TAB PO SCH ×2 (08:56→21:04)
[2018-04-10] MEDS: Calcium Carbonate + Vit D 1 TAB PO SCH ×2 (08:56→21:03)
[2018-04-10] MEDS: Folic Acid 1 MG TAB PO SCH (08:56)
[2018-04-10] MEDS: Bupropion 150 MG XL TAB PO SCH (08:56)
--- NOTE | 2018-04-10 11:04 | PRG ---
DATE OF SERVICE: 04/10/2018 SUBJECTIVE: The patient is complaining of some cough and shortness of breath. She threw up her yaneth kfast because of coughing. OBJECTIVE: VITAL SIGNS: Temperature 98.5, pulse 102, respiratory rate 24, blood pressure 114/66. CHEST: Clear. CARDIOVASCULAR: Regular rate and rhythm. ABDOMEN: Soft, nontender, without organomegaly or masses. Bowel sounds are present. RECTAL: Deferred. EXTREMITIES: Normal. LABORATORY DATA: Shows a white blood cell count of 25.1, hemoglobin 9.8, hematocrit 31.0, PT is 18.6 with an INR of 1.6. Chemistries show a CO2 of 19, creatinine 1.56, total bilirubin 3.0, alkaline ph osphatase 250, albumin 2.5. ASSESSMENT: 1. Metastatic liver disease. 2. Gastric ulcer. 3. Aspiration pneumonia. RECOMMENDATIONS: CT guided liver biopsy tomorrow.
[2018-04-10] MEDS ORDERED: Benzonatate 100 MG CAP PO PRN (11:48)
[2018-04-10] MEDS ORDERED: Lorazepam 0.5 MG TAB PO PRN (11:49)
[2018-04-10] MEDS ORDERED: Furosemide 20 MG TAB PO SCH (12:00)
[2018-04-10] MEDS ORDERED: Furosemide 40 MG TAB PO SCH (12:15)
--- NOTE | 2018-04-10 13:52 | RAD ---
PORTABLE CHEST: HISTORY: Cough. COMPARISON: Prior day's study. FINDINGS: The film is of suboptimal inspiration. Heart size appears slightly enlarged. There are atherosclero tic changes of the aorta. The pulmonary vessels are engorged. Some asymmetric right upper lobe pare nchymal change similar to the prior exam. This could indicate asymmetric edema or possibly a coexist ent infiltrate. IMPRESSION: Cardiomegaly with some vascular engorgement. Somewhat asymmetric parenchymal changes of the right up per lobe raising the possibility of pneumonia. Overall appearance is fairly similar to the prior exa m. Slightly more consolidative appearance to the right upper lobe changes. POS: [facility]
--- NOTE | 2018-04-10 14:06 | PRG ---
DATE OF SERVICE: 04/10/2018 SUBJECTIVE: The patient states that she is dyspneic at rest. PHYSICAL EXAMINATION: VITAL SIGNS: Temperature is 98.5, pulse 104, respirations 28, O2 sat 97% on 4 liters. HEENT: Unremarkable. NECK: No JVD. LUNGS: Diminished breath sounds in the bases. CARDIAC: S1 and S2 regular. ABDOMEN: Soft. EXTREMITIES: No edema. LABORATORY DATA: White blood cell count 25, hematocrit 31, platelet count 124. PTT 53.5, pH 7.34, p CO2 of 47, pO2 of 75 on 3 liters. Sodium 142, potassium 4, chloride 108, CO2 of 19, BUN 20, creatini ne 1.5, glucose 90. ASSESSMENT: 1. Pneumonia, which is likely due to aspiration. 2. Liver lesion suspicious for metastatic disease. PLAN: CT needle biopsy is planned tomorrow. Current chest x-ray demonstrates infiltrative changes p redominantly in the right upper lobe and very low lung volumes. We will continue to follow with you. Agree with current medical treatment.
[2018-04-10] MEDS ORDERED: Heparin 5,000 UNITS/ML VIAL SLOW IVP PRN (14:45)
[2018-04-10 15:06] VITALS: BMI 40.0
[2018-04-10] MEDS: guaiFENesin/DM ER PO SCH (21:04)
[2018-04-10] MEDS: traZODone HCl 50 MG TAB PO SCH (21:04)
[2018-04-10] MEDS ORDERED: Heparin 10,000 UNITS/ 10 ML VIAL SLOW IVP PRN (23:07)
[2018-04-10] MEDS ORDERED: Heparin 10,000 UNITS/ 10 ML VIAL SLOW IVP SCH (23:45)
[2018-04-10] MEDS ORDERED: Heparin 25,000 units/D5W 500 ML IV SCH (23:45)
[2018-04-11 01:06] LABS: Routine O & P Final report (.)
[2018-04-11] MEDS: Piperacillin/Tazobactam 3.375 GM in Sodium Chloride 0.9% 100 ML IVPB SCH ×3 (03:26→16:24)
[2018-04-11] MEDS: Levothyroxine Sodium 125 MCG TAB PO SCH (05:36)
[2018-04-11 05:38] LABS: PTT 66.1 SEC (22.9-36.1)
[2018-04-11 05:47] LABS: ALT (SGPT) 34 U/L (8-55); AST (SGOT) 95 U/L (5-34); Albumin 2.5 g/dL (3.4-4.8); Alkaline Phosphatase 232 U/L (40-150); Anion Gap 17 mmol/L (10-20); BUN (Urea Nitrogen) 25 mg/dL (9.8-20.1); Bilirubin, Total 3.2 mg/dL (0.2-1.2); Calc. Creatinine Clearance 49 mL/min (70-130); Calcium 9.1 mg/dL (7.8-10.44); Carbon Dioxide 22 mmol/L (23-31); Chloride 107 mmol/L (98-107); Estimated GFR-MDRD 30; Globulin 3.2 g/dL (2.4-3.5); Glucose 112 mg/dL (80-115); Protein, Total 5.7 g/dL (6.0-8.3); Sodium 142 mmol/L (136-145)
[2018-04-11 06:03] LABS: Band 9 % (5-11); Hemoglobin 9.8 g/dL (12.0-16.0); Lymphocytes 4 % (21-51); MDiff Complete? YES; Mean Corpuscular HGB CONC 31.2 g/dL (32.0-36.0); Mean Corpuscular Hemoglobin 26.3 pg (27.0-31.0); Mean Corpuscular Volume 84.5 fL (78.0-98.0); Mean Platelet Volume 10.4 fL (7.4-10.4); Monocytes 10 % (0-10); Neutrophil 77 % (42-75); Platelet Count 120 thou/uL (130-400); Red Blood Cell (RBC) Count 3.72 mill/uL (4.20-5.40); White Blood Cell (WBC) Count 28.5 thou/uL (4.8-10.8)
--- NOTE | 2018-04-11 06:04 | PDOC.FM ---
- Subjective Subjective: Ms. Guzman was sleepy this morning and did not want to talk much. She denies difficulty breathing. Had no new complaints. - Objective MAR Reviewed: Yes Vital Signs & Weight: Vital Signs (12 hours) Temp Pulse Resp BP BP Pulse Ox 04/11/18 04:00 97.9 F 95 18 161/94 H 99 04/11/18 02:26 95 20 100 04/11/18 01:21 97.7 F 100 18 155/91 H 100 04/10/18 22:38 101 H 24 H 93 L 04/10/18 20:00 98.7 F 101 H 24 H 148/75 H 93 L 04/10/18 18:31 105 H 22 H 96 Weight Admit Weight 88.224 kg Weight 92.986 kg Most Recent Monitor Data Heart Rate from ECG 87 NIBP 124/66 NIBP BP-Mean 103 Respiration from ECG 20 SpO2 92 I&O: 04/09/18 04/10/18 04/11/18 06:59 06:59 06:59 Intake Total 0396 003 4649 Output Total 825 675 350 Balance 7841 443 6237 Result Diagrams: 04/11/18 05:01 04/11/18 05:01 <Lavern Madden - Last Filed: 04/11/18 11:42> - Objective Vital Signs & Weight: Vital Signs (12 hours) Temp Pulse Resp BP BP Pulse Ox 04/11/18 14:21 108 H 20 94 L 04/11/18 11:00 97.9 F 109 H 18 136/99 H 96 04/11/18 10:12 107 H 20 95 04/11/18 07:52 98.1 F 95 22 H 95 04/11/18 07:38 98.1 F 95 18 128/81 98 04/11/18 06:59 100 04/11/18 06:57 93 20 100 04/11/18 04:00 97.9 F 95 18 161/94 H 99 Weight Admit Weight 88.224 kg Weight 92.986 kg Most Recent Monitor Data Heart Rate from ECG 87 NIBP 124/66 NIBP BP-Mean 103 Respiration from ECG 20 SpO2 92 I&O: 04/10/18 04/11/18 04/12/18 06:59 06:59 06:59 Intake Total 995 1670 Output Total 675 700 350 Balance 320 970 -350 Result Diagrams: 04/11/18 05:01 04/11/18 05:01 <GabbieHuyen resendiz - Last Filed: 04/11/18 15:33> Phys Exam - Physical Examination Constitutional: NAD MMs dry, has been NPO Respiratory: clear to auscultation bilateral Cardiovascular: RRR, no significant murmur Gastrointestinal: soft, non-tender, no distention, positive bowel sounds Musculoskeletal: edema present 3+ pitting edema LE bilaterally Neurological: non-focal, moves all 4 limbs <Lavern Madden - Last Filed: 04/11/18 11:42> Dx/Plan (1) Elevated LFTs Code(s): R94.5 - ABNORMAL RESULTS OF LIVER FUNCTION STUDIES Status: Acute (2) Hypovolemia associated with vomiting Code(s): E86.1 - HYPOVOLEMIA Status: Acute (3) Metastatic disease Code(s): C79.9 - SECONDARY MALIGNANT NEOPLASM OF UNSPECIFIED SITE Status: Acute (4) Sepsis Code(s): A41.9 - SEPSIS, UNSPECIFIED ORGANISM Status: Acute (5) Depression Code(s): F32.9 - MAJOR DEPRESSIVE DISORDER, SINGLE EPISODE, UNSPECIFIED Status : Chronic (6) Hypertension Code(s): I10 - ESSENTIAL (PRIMARY) HYPERTENSION Status: Chronic (7) Hypothyroidism Code(s): E03.9 - HYPOTHYROIDISM, UNSPECIFIED Status: Chronic (8) Normocytic anemia Code(s): D64.9 - ANEMIA, UNSPECIFIED Status: Chronic (9) Osteoporosis Code(s): M81.0 - AGE-RELATED OSTEOPOROSIS W/O CURRENT PATHOLOGICAL FRACTURE Status: Chronic (10) Hyponatremia Code(s): E87.1 - HYPO-OSMOLALITY AND HYPONATREMIA Status: Resolved (11) Acute respiratory failure with hypoxia and hypercapnia Code(s): J96.01 - ACUTE RESPIRATORY FAILURE WITH HYPOXIA; J96.02 - ACUTE RESPIRATORY FAILURE WITH HYPERCAPNIA Status: Acute (12) Hypokalemia Code(s): E87.6 - HYPOKALEMIA Status: Acute - Plan Plan: Metastatic disease findings on liver and lung, unknown primary source - Found initially on CT ab/pelvis. Will continue workup to identify primary source - CT chest showed multiple small pulmonary nodules, likely metastatic, largest one 9mm. R lateral 5th rib fx w/lytic focus - CEA 1195, CA-125 1248 - EGD performed 04/06, gastric ulcer. Colonoscopy unable to be completed d/t hard stool. Repeat colonoscopy performed 04/08 to hepatic flexure, no mass seen. - Consulted GI. Appreciate further recommendations. - Liver biopsy planned for today. - Oncology consult pending primary source - Palliative care was consulted Acute hypoxic respiratory failure 2/2 likely aspiration pneumonia - Chest CTA neg for PE. showed possible aspiration pneumonia, small R pleural effusion, spine mets, R hemidiaphragm eventration - on 4L NC now, will try to wean down as patient satting well - incentive spirometry - Pulmonology consulted, appreciate recommendations. - Continue Zosyn (04/06) - Heparin stopped this am for planned procedure Gastric Ulcer - 3-4mm found on EGD, did not appear to be malignant - biopsy showed reactive gastropathy, H pylori neg - avoid NSAIDS and continue protonix DAY - Cr 1.36-> 1.59->1.5->1.7 - likely 2/2 contrast received and hypovolemia component as well - will avoid nephrotoxic medications - monitor I/Os, urine output adequate last 24 hrs Dysphagia - speech therapy recommended pureed diet with thin liquids Anxiety - ativan or hydroxyzine prn Leukocytosis - WBC 31 on admission - continue IV abx Cholecystisis possible - RUQ US showed gallbladder filled with echogenic stones, sludge, thickened meléndez, positive Rice's sign. Metastatic lesions on liver. Possible cause for initial hospital presentation - Has need for HIDA scan but this will be postponed until more necessary workup is completed Sepsis 2/2 likely GI pathology on initial presentation, resolved -Presented with N/V/D, tachycardia, leukocytosis, and lactic acidosis suggestive of sepsis. Less likely to be of bacteremic origin -Originally on Vancomycin (04/01) and Zosyn, discontinued 04/04. -FOBT negative. Stool studies not completed d/t formed stools. -UA neg -blood and urine cultures, no growth Normocytic anemia, stable -Ferritin 2594, iron studies suggest anemia of chronic disease -Continue to monitor. Hypokalemia, resolved - 3.1 -> 2.5->3.3-> 3.5 Elevated LFTs and total bilirubin likely secondary to metastatic disease -Work up per above Weakness - consult PT HTN Chronic Low Back Pain - after "breaking back" 6 years ago - prn tramadol Constipation - Bowel regimen Hypothyroidism - on synthroid -TSH 5.3, Free T4 wnl at .95, Free T3 low <1 Depression -Continue home medications Osteoporosis -Continue home medications Previous Tobacco Use - quit 6 years ago, 8 pack year hx Mild hyponatremia, resolved PPx: Lovenox for VTE prophylaxis, Protonix for GI prophylaxis. CODE STATUS: DNI Dispo: pending workup <Lavern Madden - Last Filed: 04/11/18 11:42> Attending Addendum - Attending Addendum Date/Time: 04/11/18 1531 I personally evaluated the patient and discussed the management with Dr. Madden. I agree with the History, Examination, Assessment and Plan documented above with any addition or exceptions noted below. Pt scheduled for CT guided liver biopsy. She remains on IV antibiotics for aspiration pneumonia. Heparin drip stopped. Palliative care has been consulted and will see pt today. O2 sats were 100% on 2 liters when we saw the patient. She has not had any new fevers. <Huyen Cartwright - Last Filed: 04/11/18 15:33>
[2018-04-11] MEDS ORDERED: Sodium Bicarb 50 MEQ/50 ML Abboject 8.4% SYRINGE ONE (07:26)
[2018-04-11] MEDS ORDERED: EPINEPHrine 1 MG/10 ML Abboject SYRINGE ONE (07:26)
[2018-04-11] MEDS ORDERED: Calcium Chloride 1 GM/10 ML Abboject SYRINGE ONE (07:26)
[2018-04-11 07:56] LABS: INR-International Normal Ratio 1.9; Prothrombin Time 21.5 SEC (12.0-14.7)
--- NOTE | 2018-04-11 08:46 | PRG ---
DATE OF SERVICE: 04/11/2018 She is a 62-year-old female who remains somewhat encephalopathic, but she is quite responsive. PHYSICAL EXAMINATION: VITAL SIGNS: Sats are 98% on 4 liters, respiration rate 18, temperature 98, pulse 95, blood pressure 121/81. She denies any chest pain. She denies difficulty breathing. LABORATORY: White count 28,000, H&H 9 and 31, platelet count is 120, creatinine 1.9. Albumin is 2.5 . X-ray yesterday shows a right upper infiltrate which clearly has improved. IMPRESSION: 1. Respiratory failure. 2. Morbid obesity. 3. Multiple liver masses, probably metastatic disease. 4. Aspiration pneumonia. PLAN: I see no reason to suspect PE at this stage. I am not so sure why a diagnosis of PE was enter tained. I would be very reluctant to start any kind of anticoagulation without a definite diagnosis on this lady with multiple liver masses. Hopefully, she can try a liver biopsy today. I would continue Zosyn. All cultures are so far negative. Prognosis is clearly poor. I will discuss and follow.
[2018-04-11] MEDS ORDERED: Midazolam HCl 2 mg/2 ml Vial ONE (11:05)
[2018-04-11] MEDS ORDERED: Sodium Bicarbonate 2.5 MEQ/5 ML VIAL ONE (11:06)
[2018-04-11] MEDS ORDERED: Fentanyl 100 MCG/2 ML VIAL ONE (11:06)
[2018-04-11] MEDS: guaiFENesin/DM ER PO SCH ×2 (12:11→19:48)
[2018-04-11] MEDS: traMADol HCl 50 MG TAB PO PRN ×2 (12:11→19:51)
[2018-04-11] MEDS: PARoxetine 20 MG TAB PO SCH (12:12)
[2018-04-11] MEDS: Bupropion 150 MG XL TAB PO SCH (12:12)
[2018-04-11] MEDS: Calcium Carbonate + Vit D 1 TAB PO SCH ×2 (12:12→19:48)
[2018-04-11] MEDS: Folic Acid 1 MG TAB PO SCH (12:12)
[2018-04-11] MEDS: Senokot 8.6 MG TAB PO SCH ×2 (12:13→19:50)
--- NOTE | 2018-04-11 12:14 | CT ---
LIMITED ABDOMINAL CT: INDICATION: HEPATIC METASTATIC DISEASE TECHNIQUE: The patient was sent to the radiology department for a CT-guided biopsy of hepatic hypodensities susp icious for metastatic disease. Initial CT evaluation was performed for guidance purposes only. Benoit mindy, the patient was delirious during the examination, moving extensively in the preparations for thi s procedure and having difficulty in following commands. Preprocedure CT also demonstrates persisten t opacities within both lower lobes suspicious for aspiration pneumonitis or pneumonia with small tami ateral pleural effusions. The patient was having difficulty breathing during this examination; there fore, the CT-guided biopsy was cancelled. Findings were discussed with Dr. Lavern Madden at 11:41 a. m. on 04/11/18. IMPRESSION: Aborted CT-guided liver mass biopsy due to delirium and difficulty breathing due to pneumonia. CODE CR POS: [facility]
[2018-04-11 17:22] VITALS: BP 130/66
--- NOTE | 2018-04-11 17:31 | PRG ---
DATE OF SERVICE: 04/11/2018 GASTROINTESTINAL INPATIENT DAILY PROGRESS NOTE SUBJECTIVE: The patient has had overall steady deterioration in mental status and has been in and ou t of delirium. Over the past few days, respiratory status has improved to the point where she is out of the unit, but she is still requiring supplemental oxygen. My partner, Dr. Irby performed colonos copy which was a poor quality prep. He was able to examine to the hepatic flexure and did not find a ny colonic abnormality within the limitations of the exam. She was sent for CT-guided liver biopsy selvin orsas today, but due to her agitation and tenuous respiratory status, they had to cancel the liver b iopsy. OBJECTIVE: VITAL SIGNS: Temperature 97.9, pulse 108, blood pressure 136/99, 94% oxygen saturation on 2 liters b y nasal cannula. GENERAL: Ill-appearing 62-year-old woman lying in bed. She is somnolent, but arousable; however, sh e is encephalopathic and unable to answer any questions with specificity. HEART: Regular tachycardia. LUNGS: She is mildly tachypneic, bibasilar crackles. ABDOMEN: Bowel sounds present, soft, nontender to palpation. EXTREMITIES: No peripheral edema. LABORATORY STUDIES: WBC up to 28.5, hemoglobin 9.8, platelets 120. INR up to 1.9. Sodium 142, pota ssium 4.0, BUN 25, creatinine up to 1.70. LFTs are also trending up with total bilirubin 3.2, alkali ne phosphatase 232, AST 95, ALT 34. ASSESSMENT AND PLAN: 1. Metastatic disease to the liver and lung. 2. Elevated CEA. 3. Gastric ulcer, benign. 4. Aspiration pneumonia. 5. Encephalopathy. This is a very difficult clinical situation. The patient's prognosis is very gr im just on the basis of what appears to be significant metastatic disease. The primary source is unk nown, and I suppose could still include a right-sided colonic lesion, though note Dr. Irby's a recent colonoscopy exam did not demonstrate any lesions within the limitations of a poor bowel prep. Unfor tunately, I do not think the patient would tolerate another procedure, another attempt at bowel prepa ration and clinically it really probably would not much difference at this point. The only way that I can to get a tissue diagnosis would be to retry CT-guided biopsy of one of her liver lesions after better control of her respiratory and mental status. We will not plan on any further endoscopic inve stigations. In the long run, regardless of the source, I do not think the patient would be a good ca ndidate for any curative modalities. Consideration of hospice and palliative care would certainly be appropriate. Please call back anytime with questions or concerns.
[2018-04-11] MEDS: traZODone HCl 50 MG TAB PO SCH ×2 (19:47→20:02)
[2018-04-11 22:04] VITALS: TEMP 97.7
--- NOTE | 2018-04-11 22:46 | PDOC.EVN ---
Event Note - Event Note Event Note: Mervat Doyle called at approximately 20:55. Resident at bedside at approximately 20 :[address] Coyne present and running code. Transition of care shortly thereafter when Dr. Carlson arrived. Patient was receiving CPR. Checkout from nurse was that patient was last seen normal at 20:00 when given her evening medications. She was having no respiratory or otherwise distress at that time. Nursing went in to check on her at 20:55 and found her unresponsive with no pulse and Mervat Doyle called immediately. ACLS algorithm followed and monitor continued to show PEA with no palpable pulse. Patient's son, Ramu, was notified at approximately 21:05 and the situation was discussed. He confirmed she would not want intubation which was her expressed with to us, however he desired that measures be continued as long as seemed appropriate to attempt resuscitation. Patient remained without pulse, breath sounds clear BL with mask ventilation and after approximately 30 minutes of ACLS resuscitative efforts, decision was made at 21:25 by entire team to discontinue resuscitative efforts as no improvement was being noted. Patient's son, Ramu, was again reached out to and situation discussed at length again. He had no questions or further concerns. We let him know nursing would be reaching out to him regarding arrangements and we are available 28/02 to answer any questions or meet with him.
[2018-04-12] MEDS ORDERED: Enoxaparin Sodium 40 MG/0.4 ML SYRINGE SC SCH (09:00)
--- NOTE | 2018-04-13 13:45 | DS-2 ---
DATE OF ADMISSION: 04/01/2018 DATE OF : 04/11/2018 TIME OF : 2125 hours. ATTENDING: Leno Carlson MD RESIDENT: Noemi Villarreal MD CAUSE OF : Unknown. SECONDARY DIAGNOSES: 1. Aspiration pneumonia. 2. Metastatic disease. 3. Sepsis. 4. Transaminitis. 5. Normocytic anemia. 6. Hypertension. 7. Hypothyroidism. 8. Hyperlipidemia. 9. Osteoporosis. 10. Depression. 11. Restless leg syndrome. HOSPITAL COURSE: Ms. Jp Guzman was a 62-year-old female who presented to the emergency room on 04/01/2018 with nausea, vomiting, diarrhea, and progressive weakness for approximately 3 weeks. At that time, she was admitted for sepsis secondary to underlying likely GI pathology as she was found to be tachycardic with leukocytosis and lactic acidosis. She was started on broad spectrum antibiotics at that time and admitted for close monitoring. She was also noted to have likely metastatic disease with evidence of lung and liver metastases on imaging and Oncology was consulted inpatient. The patient had a very complicated hospital course including inability to obtain a successful colonoscopy due to patient intolerance and ongoing nausea and vomiting. Mervat vasquez was called on 04/04/2018 as the patient has been vomiting all night and was noted to be hypoxic by nursing. At that time, she was moved onto the intensive care unit and started on BiPAP where she made moderate improvement and was hemodynamically stable for transfer up to the floor. The patient continued to overall decompensate and on the evening of 04/11/2018, the patient was found in her room by nursing staff to be unresponsive. This occurred at approximately 2100 hours, please see the event and code blue note for further details. Of note, the patient was last seen normal approximately 1 hour prior to that. She took her evening medications without issue and to her knowledge, patient was in no distress prior to being found unresponsive. ACLS was completed for approximately 30 minutes, then patient's wish to not be intubated was respected. Family was reached out at 2 occasions during the code and were agreeable to resuscitative efforts of approximately 30 minutes after which they desired resuscitative efforts to be discontinued. Time of was called at 2125 hours on 04/11/2018. [place]
== END 2018-04-11 21:25 | disposition expired | DRG 871 ==
LOC: ERS 20:03 → 2NO 23:41 → T4-A 04-04 16:58 → CCU 04-06 05:21 → IMCU/EMU 04-08 00:23 → T4-A 04-09 16:10
PROVIDERS: ADMIT Student in an Organized Health Care Education/Training Program; ATTEND Student in an Organized Health Care Education/Training Program
PROC: 0DB68ZX Excision of Stomach, Via Natural or Artificial Opening Endoscopic, Diagnostic (ICD-10-PCS; 2018-04-05)
PROC: 0DJD8ZZ Inspection of Lower Intestinal Tract, Via Natural or Artificial Opening Endoscopic (ICD-10-PCS; 2018-04-05)
PROC: 0DJD8ZZ Inspection of Lower Intestinal Tract, Via Natural or Artificial Opening Endoscopic (ICD-10-PCS; 2018-04-08)
PROC: 5A2204Z Restoration of Cardiac Rhythm, Single (ICD-10-PCS; principal; 2018-04-11)
DX: A41.9 Sepsis, unspecified organism (principal); J69.0 Pneumonitis due to inhalation of food and vomit; G93.40 Encephalopathy, unspecified; J96.02 Acute respiratory failure with hypercapnia; J96.01 Acute respiratory failure with hypoxia; C78.7 Secondary malignant neoplasm of liver and intrahepatic bile duct; E87.1 Hypo-osmolality and hyponatremia; C78.00 Secondary malignant neoplasm of unspecified lung; J44.1 Chronic obstructive pulmonary disease with (acute) exacerbation; J44.0 Chronic obstructive pulmonary disease with (acute) lower respiratory infection; N17.9 Acute kidney failure, unspecified; E87.2 Acidosis; Z68.41 Body mass index [BMI] 40.0-44.9, adult; I46.9 Cardiac arrest, cause unspecified; R41.0 Disorientation, unspecified; K25.9 Gastric ulcer, unspecified as acute or chronic, without hemorrhage or perforation; E66.01 Morbid (severe) obesity due to excess calories; E86.1 Hypovolemia; F32.9 Major depressive disorder, single episode, unspecified; I10 Essential (primary) hypertension; E03.9 Hypothyroidism, unspecified; D64.9 Anemia, unspecified; M81.0 Age-related osteoporosis without current pathological fracture; E87.6 Hypokalemia; M54.5 Low back pain; G89.29 Other chronic pain; K59.00 Constipation, unspecified; Z87.891 Personal history of nicotine dependence; J20.9 Acute bronchitis, unspecified; K81.9 Cholecystitis, unspecified; K64.4 Residual hemorrhoidal skin tags; E78.5 Hyperlipidemia, unspecified; G25.81 Restless legs syndrome
CPT/HCPCS: 36415; 71045; 71046; 71260; 71275; 74177; 76380; 76705; 76857; 80053; 80061; 80202; 81003; 81015; 82274; 82378; 82553; 82607; 82728; 82746; 82805; 82977; 83516; 83540; 83550; 83605; 83630; 83690; 83735; 83880; 84145; 84165; 84439; 84443; 84481; 84484; 85025; 85379; 85610; 85730; 86304; 86706; 86780; 86803; 87040; 87086; 87177; 87340; 87389; 88305; 88312; 93005; 93010; 93306; 94640; 94660; 94760; 96361; 96365; 96375; A4216; C9113; G8978-GP-CK; G8978-GP-CM; G8979-GP-CI; G8979-GP-CJ; G8996-GN-CK; G8997-GN-CI; J0171; J1644; J1650; J1885; J1940; J2001; J2185; J2250; J2270; J2543; J2550; J2704; J3010; J3370; J3475; J3480; J7050; J7506; J7620; Q0162